=== PATIENT | male | born 1960 | race Caucasian/White ===

== ENCOUNTER 2018-06-01 06:39 | Observation (INO) | payer OTHER ==
[2018-05-29 09:49] LABS: BASOPHILS # (AUTO) 0.1 (0.0-0.1); BASOPHILS % 0.7 % (0.0-1.0); EOSINOPHILS # (AUTO) 0.3 (0.0-0.4); EOSINOPHILS % 3.4 % (0.0-6.0); HEMATOCRIT 44.6 % (38.2-49.6); HEMOGLOBIN 14.8 g/dL (14.0-18.0); LYMPHOCYTES # (AUTO) 1.7 (1.0-3.2); LYMPHOCYTES % 18.7 % (18.0-39.1); MEAN CORPUSCULAR HEMOGLOBIN 30.8 pg (28-32); MEAN CORPUSCULAR HGB CONC 33.2 g/dL (31-35); MEAN CORPUSCULAR VOLUME 92.9 fL (81-99); MONOCYTES # (AUTO) 0.8 (0.2-0.8); MONOCYTES % 8.9 % (4.4-11.3); NEUTROPHILS # (AUTO) 6.2 (2.1-6.9); NEUTROPHILS % 67.9 % (38.7-80.0); PLATELET COUNT 210 x10e3/uL (140-360); RED CELL DISTRIBUTION WIDTH 13.9 % (11.7-14.4)
[2018-05-29 10:17] LABS: ANION GAP 14.4 mmol/L (8-16); BLOOD UREA NITROGEN 15 mg/dL (7-26); BUN/CREATININE RATIO 18 (6-25); CALCIUM 9.2 mg/dL (8.4-10.2); CARBON DIOXIDE 31 mmol/L (22-29); CHLORIDE 99 mmol/L (98-107); CREATININE, SERUM 0.83 mg/dL (0.72-1.25); EST GLOMERULAR FILTRATION RATE > 60 ML/MIN (60-); GLUCOSE 116 mg/dL (74-118); POTASSIUM 4.4 mmol/L (3.5-5.1); SODIUM 140 mmol/L (136-145)
--- NOTE | 2018-05-29 10:49 | Diagnostic Imaging Report ---
PROCEDURE: Frontal and lateral views of the chest. COMPARISON: None. INDICATIONS: PRE-OPERATIVE CHEST X-RAY FOR BLADDER OBSTRUCTION FINDINGS: Lines/tubes: None. Lungs: The lungs are well inflated. Elevated left hemidiaphragm with left basilar opacification. Pleura: There is no significant pleural effusion or pneumothorax. Heart and mediastinum: The heart and the mediastinum are normal. Bones: No acute bony abnormality. IMPRESSION: Elevated left hemidiaphragm with adjacent left basilar mild opacification, likely compressive atelectasis. Underlying infiltrate/small effusion cannot be excluded in the appropriate clinical setting. Dictated by: Chano Stahl M.D. on 05/29/2018 at 10:53 Electronically approved by: Chano Stahl M.D. on 05/29/2018 at 10:53
[~2018-06-01] VITALS: Ht 182.9 cm; Wt 163.3 kg
[~2018-06-01 06:39] MED LIST: AMITRIPTYLINE H10 MG PO; AMLODIPINE BESY10 MG PO; ASPIR 8181 MG PO; ATORVASTATIN CA20 MG PO; CALCIUM ACETAT667 M1 PO; FINASTERIDE5 MG PO; FISH OIL 1,2001 EAC1 PO; FLAXSEED OIL1000 MG PO; FLOMAX0.4 MG PO; LISINOPRIL10 MG PO; MELOXICAM7.5 MG PO; MULTI-VITAMIN1 EACH PO; NORCO 7.5-3251 EACH PO
[2018-06-01] MEDS ORDERED: BELLADONNA/OPIUM 30 MG SUPP RC ONE (07:14)
[2018-06-01] MEDS ORDERED: IOPAMIDOL 300MG/ML 50ML INFUS..BTL IV ONE (07:15)
[2018-06-01] MEDS ORDERED: CEFTRIAXONE SOD 1 GM VIAL ONE (07:35)
[2018-06-01] MEDS ORDERED: DEXTROSE 5%/0.45% SOD CHL 1,000 ML IV ONE (11:15)
[2018-06-01] MEDS ORDERED: ACETAMINOPHEN/CODEINE 300MG - 30MG TAB PO PRN ×2 (11:15)
--- NOTE | 2018-06-01 11:43 | Diagnostic Imaging Report ---
PROCEDURE: A single AP view of the chest. COMPARISON: [facility], , CHEST 2 VIEWS, 05/29/2018, 9:58. INDICATIONS: HYPOXIA DURING SURGERY FINDINGS: See impression. IMPRESSION: 1. unchanged elevation of the left hemidiaphragm and associated atelectatic changes. 2. Stable enlargement of the cardiac silhouette. Central pulmonary venous congestion. 3. Right lung is grossly clear. No effusion or consolidation. Jad Pandey M.D. Dictated by: Jad Pandey M.D. on 06/01/2018 at 11:48 Electronically approved by: Jad Pandey M.D. on 06/01/2018 at 11:48
[2018-06-01 12:32] VITALS: BP 119/70
[2018-06-01 13:57] VITALS: BP 119/70
[2018-06-01] MEDS ORDERED: LIDOCAINE HCL 2% LOCAL INJ 5 ML SDV VIAL INJ ONE (14:18)
[2018-06-01] MEDS ORDERED: SUCCINYLCHOLINE 200 MG/10 ML SYR ONE (14:18)
[2018-06-01] MEDS ORDERED: PROPOFOL IV EMULSION 10 MG/ML 20 ML VIAL ONE (14:18)
[2018-06-01] MEDS ORDERED: GLYCOPYRROLATE INJ 1MG/ 5 ML SYR ONE (14:18)
[2018-06-01] MEDS ORDERED: ALBUTEROL SULFATE HFA 8GM INHALATION AEROSOL INH ONE (14:18)
[2018-06-01] MEDS ORDERED: NEOSTIGMINE 5 MG/5ML SYR ONE (14:18)
[2018-06-01] MEDS ORDERED: EPHEDRINE SULFATE INJ 50 MG/10 ML SYR ONE (14:18)
[2018-06-01] MEDS ORDERED: ROCURONIUM BROMIDE 10 MG/ML 5ML VIAL ONE (14:18)
[2018-06-01] MEDS ORDERED: SEVOFLURANE INHAL SOLN 250 ML PEN BTL ONE (14:18)
[2018-06-01 15:18] VITALS: BP 142/81
[2018-06-01] MEDS ORDERED: HYDROCODONE/APAP 7.5MG-325MG 1 EA TAB PO PRN (15:30)
[2018-06-01] MEDS ORDERED: MIDAZOLAM HCL 2 MG/2 ML VIAL ONE (18:04)
[2018-06-01] MEDS ORDERED: FENTANYL CITRATE/PF 100MCG/2 ML INJ ONE (18:04)
[2018-06-01 19:54] VITALS: BP 140/91
[2018-06-01 21:00] VITALS: BP 140/91
[2018-06-01] MEDS ORDERED: ATORVASTATIN 20 MG TAB PO SCH (21:00)
[2018-06-01] MEDS ORDERED: AMITRIPTYLINE HCL 10 MG TAB PO PRN (21:00)
[2018-06-02 00:01] VITALS: BP 141/77
[2018-06-02 03:46] VITALS: BP 127/75
[2018-06-02 07:47] VITALS: BP 118/76
[2018-06-02] MEDS ORDERED: FINASTERIDE 5 MG TAB PO SCH (09:00)
[2018-06-02] MEDS ORDERED: LISINOPRIL 10 MG TAB PO SCH (09:00)
[2018-06-02] MEDS ORDERED: FATTY ACIDS PO SCH (09:00)
[2018-06-02] MEDS ORDERED: [UNRECOGNIZED DRUG - OTHER] PO SCH (09:00)
[2018-06-02] MEDS ORDERED: CALCIUM ACETATE 667 MG GELCAP PO SCH (09:00)
[2018-06-02] MEDS ORDERED: FLAXSEED PO SCH (09:00)
[2018-06-02] MEDS ORDERED: OMEGA 3 POLYUNSAT FATTY ACIDS 1000 MG SOFTGEL PO SCH (09:00)
[2018-06-02] MEDS ORDERED: AMLODIPINE BESYLATE 10 MG TAB PO SCH (09:00)
[2018-06-02] MEDS ORDERED: FISH OIL PO SCH (09:00)
[2018-06-02] MEDS ORDERED: CALCIUM CARBONATE 500 MG CHEWABLE TABS PO SCH (09:00)
[2018-06-02] MEDS ORDERED: OMEGA PO SCH (09:00)
[2018-06-02] MEDS ORDERED: TAMSULOSIN HCL 0.4 MG CAP PO SCH (09:00)
[2018-06-02] MEDS ORDERED: MULTIVITAMINS/MINERALS TAB PO SCH (09:00)
[2018-06-02] MEDS ORDERED: MELOXICAM 7.5 MG TAB PO SCH (09:00)
[2018-06-02] MEDS ORDERED: LISINOPRIL 20 MG TAB PO SCH (09:00)
--- NOTE | 2018-06-28 16:50 | Operative Report ---
DATE OF PROCEDURE: June 01, 2018 PREOPERATIVE DIAGNOSIS: Bladder outlet obstruction. POSTOPERATIVE DIAGNOSIS: Bladder outlet obstruction. PROCEDURES PERFORMED: 1. Cystoscopy. 2. Transurethral resection of the prostate. ANESTHESIA: General anesthesia. ESTIMATED BLOOD LOSS: Minimal. INDICATIONS: Mr. Stevo Kwon is a 57-year-old gentleman with a long history of bladder outlet obstructive symptoms which have not responded adequately to maximum medical therapy. He now presents for definitive surgical management of this problem. PROCEDURE IN DETAIL: The patient was brought into the operating room and placed in supine position and after administration of general anesthesia was prepped and draped in the usual sterile fashion. He was put in the dorsal lithotomy position. Cystourethroscopy was performed using a 21-Vincentian cystoscope. The anterior and posterior urethrae were noted to be normal. The prostate revealed evidence of trilobar hyperplasia. The bladder was entered without difficulty. Upon entrance into the bladder, the ureteral orifices were in their normal anatomical position and produced clear efflux. There were grade 2 trabeculations noted throughout. There were no mucosal lesions identified. The bladder was left full, and the cystoscope and the sheath were removed. A 26-Vincentian resectoscope sheath was placed in a retrograde fashion, and the [employer] resectoscope was used to perform the procedure. Beginning at the 1 o'clock position and proceeding in a clockwise fashion down to the 6 o'clock position, all of the adenomatous tissues between the bladder neck and the veru were resected down to the level of the surgical capsule. Hemostasis was obtained using the electrocautery device. A similar procedure was performed on the contralateral side in a counterclockwise fashion beginning at the 11 o'clock position and again ending at the 6 o'clock position. The residual tissue noted on the roof and floor of the gland was then resected down as well. Hemostasis was obtained using the electrocautery device, and the [email or web address] evacuator was used to remove all chips. These were sent to pathology for microscopic analysis. Once adequate hemostasis was secured, the bladder was left full and the resectoscope and the sheath were removed. The patient was noted to have a brisk urinary flow with coude. A 24-Vincentian 3-way catheter was then placed in a retrograde fashion and the balloon inflated. The urinary efflux was noted to be blood-tinged. The patient was returned to supine position, and the anesthesia was reversed. He was transferred to a bed and taken to the postanesthesia care unit in good condition. Of note, the instrument count was correct at the conclusion of the case. Job#: [id number] EV
== END 2018-06-02 10:35 | disposition home or self-care (01) ==
LOC: OR 06:39 → PACU V 11:09 → IMCU 12:15
PROVIDERS: ADMIT Urology; ATTEND Urology
DX: N40.1 Benign prostatic hyperplasia with lower urinary tract symptoms (principal); N13.8 Other obstructive and reflux uropathy; I10 Essential (primary) hypertension; Z88.0 Allergy status to penicillin
CPT/HCPCS: 36415; 52630; 71045; 71046; 80048; 85025; 88305; 93005; G0378 ×2; J0696; J2001; J2250; J3490

== ENCOUNTER 2019-07-18 11:06 | Inpatient (IN) | payer OTHER ==
[~2019-07-18] VITALS: Ht 182.9 cm; Wt 159.7 kg
[2019-07-18] MEDS ORDERED: MORPHINE SULFATE 2 MG/ML SYR 1ML IV STA (11:57)
[2019-07-18] MEDS ORDERED: VANCOMYCIN 1GM/NS 250 ML 250 ML IV STA (11:57)
[2019-07-18] MEDS ORDERED: SODIUM CHLORIDE 0.9% 1000ML 1,000 ML IV STA (11:57)
[2019-07-18] MEDS ORDERED: PANTOPRAZOLE 40 MG 10ML VIAL IV STA (11:57)
[2019-07-18] MEDS ORDERED: ASPIRIN 81 MG CHEW TAB PO ONE (12:00)
[2019-07-18] MEDS ORDERED: SODIUM CHLORIDE 0.9% 1000ML 1,000 ML IV SCH (12:09)
[2019-07-18] MEDS ORDERED: ONDANSETRON HCL INJ 2MG/ML 2ML 2 MG/ML VIAL IV PRN (12:15)
[2019-07-18] MEDS ORDERED: CEFEPIME 2 GM/NS 0.9% 100 ML 100 ML IV ONE (12:20)
[2019-07-18] MEDS ORDERED: MORPHINE SULFATE 2 MG/ML SYR 1ML IV PRN (12:30)
[2019-07-18 12:56] LABS: BASOPHILS # (AUTO) 0.1 (0.0-0.1); BASOPHILS % 0.9 % (0.0-1.0); EOSINOPHILS # (AUTO) 0.4 (0.0-0.4); EOSINOPHILS % 2.9 % (0.0-6.0); HEMATOCRIT 43.6 % (38.2-49.6); HEMOGLOBIN 14.1 g/dL (14.0-18.0); LYMPHOCYTES # (AUTO) 1.9 (1.0-3.2); LYMPHOCYTES % 12.6 % (18.0-39.1); MEAN CORPUSCULAR HEMOGLOBIN 30.5 pg (28-32); MEAN CORPUSCULAR HGB CONC 32.3 g/dL (31-35); MEAN CORPUSCULAR VOLUME 94.2 fL (81-99); MONOCYTES # (AUTO) 1.6 (0.2-0.8); MONOCYTES % 10.3 % (4.4-11.3); NEUTROPHILS # (AUTO) 10.6 (2.1-6.9); NEUTROPHILS % 70.6 % (38.7-80.0); PLATELET COUNT 348 x10e3/uL (140-360); RED BLOOD COUNT 4.63 x10e6/uL (4.3-5.7); RED CELL DISTRIBUTION WIDTH 13.8 % (11.7-14.4)
--- NOTE | 2019-07-18 12:58 | Diagnostic Imaging Report ---
EXAM: CHEST SINGLE (PORTABLE) DATE: 07/18/2019 11:57 AM INDICATION: Shortness of breath COMPARISON: 06/01/2018 FINDINGS: The trachea is midline. There is stable blunting of the left costophrenic angle and left lower lung zone opacities which may reflect atelectasis and/or pleural fluid. There is no evidence for new large focal consolidation or pneumothorax. The cardiac mediastinal silhouette is stable in appearance. No acute osseous abnormalities identified. IMPRESSION: Stable left lower lung zone opacities which may reflect atelectasis and/or small volume of pleural fluid. An underlying airspace process cannot be entirely excluded. Signed by: Dr. Anthony Pool MD on 07/18/2019 12:55 PM
[2019-07-18 13:04] LABS: BILIRUBIN,URINE NEGATIVE (NEGATIVE); CLARITY,URINE CLEAR (CLEAR); COLOR,URINE YELLOW (YELLOW); KETONES,URINE NEGATIVE (NEGATIVE); LEUKOCYTE ESTERASE ,URINE NEGATIVE (NEGATIVE); NITRITE,URINE NEGATIVE (NEGATIVE); PROTEIN,URINE DIPSTICK NEGATIVE (NEGATIVE); URINE UROBILINOGEN 1 mg/dL (0.2 - 1)
[2019-07-18 13:07] LABS: INR 1.1; PROTHROMBIN TIME 14.7 seconds (11.9-14.5)
[2019-07-18 13:08] LABS: PARTIAL THROMBOPLASTIN TIME 28.2 seconds (23.8-35.5)
[2019-07-18 13:15] LABS: ALANINE AMINOTRANSFERASE 33 IU/L (0-55); ALBUMIN 2.7 g/dL (3.5-5.0); ALBUMIN/GLOBULIN RATIO 0.6 (0.8-2.0); ALKALINE PHOSPHATASE 132 IU/L (40-150); ANION GAP 11.1 mmol/L (8-16); BLOOD UREA NITROGEN 11 mg/dL (7-26); BUN/CREATININE RATIO 14 (6-25); CALCIUM 9.8 mg/dL (8.4-10.2); CARBON DIOXIDE 34 mmol/L (22-29); CHLORIDE 93 mmol/L (98-107); CREATINE KINASE 405 IU/L (30-200); CREATININE, SERUM 0.81 mg/dL (0.72-1.25); EST GLOMERULAR FILTRATION RATE > 60 ML/MIN (60-); GLUCOSE 110 mg/dL (74-118); LIPASE 35 U/L (8-78); MAGNESIUM 2.4 MG/DL (1.3-2.1); POTASSIUM 4.1 mmol/L (3.5-5.1); SODIUM 134 mmol/L (136-145)
[2019-07-18] MEDS ORDERED: VANCOMYCIN 1GM/NS 250 ML 250 ML IV ONE (13:15)
[2019-07-18 13:30] LABS: B-TYPE NATRIURETIC PEPTIDE2 19.3 pg/mL (0-100)
[2019-07-18 13:37] LABS: BACTERIA,URINE FEW /HPF; RENAL EPITHELIAL CELLS,URINE RARE; THYROID STIMULATING HORMONE 0.735 uIU/mL (0.350-4.940)
[2019-07-18 13:59] LABS: EPITHELIAL CELLS,URINE RARE /LPF
[2019-07-18] MEDS ORDERED: FUROSEMIDE INJ 10 MG/ML 4 ML VIAL IV SCH (15:45)
[2019-07-18] MEDS ORDERED: HYDROCODONE/APAP 5MG-325MG TAB PO PRN (16:00)
[2019-07-18 16:20] VITALS: BP 133/80
[2019-07-18 16:25] VITALS: BP 133/80
[2019-07-18] MEDS: ENOXAPARIN SOD INJ 40 MG/0.4 ML SYR SC SCH (17:41)
[2019-07-18] MEDS: FAMOTIDINE 20 MG/2 ML VIAL IV SCH (17:41)
--- NOTE | 2019-07-18 18:50 | NUR ---
Spoke with Dr. Torres at this time. Patient is requesting that we place a Arndt catheter. Educated patient regarding high risk of infection. Dr. Torres denied patient's request but stated, "If the patient continues to ask during the night, it is ok to put one in. Don't call me to ask." Verbalized understanding of orders.
[2019-07-18 20:00] VITALS: BP 142/79
[2019-07-18 21:00] VITALS: BP 142/79
[2019-07-18 21:33] LABS: CREATINE KINASE 412 IU/L (30-200)
--- NOTE | 2019-07-18 22:51 | History and Physical ---
CHIEF COMPLAINT: Right lower extremity redness, shortness of breath. HISTORY OF PRESENT ILLNESS: This is a 58-year-old male, morbidly obese, and which he [place] the [place] of [place], reports a history of hypertension, hyperlipidemia, BPH, presents to the ED with complaints of right lower extremity cellulitis and shortness of breath ongoing for the last several weeks. In relation to his right lower extremity cellulitis, he reports that it began worse since last with increased swelling in the right lower extremity and pain. Denies any cold sensation to the right lower extremity. He reports it started initially on the foot in terms of the redness and progressed all the way up towards the knee. He denies any fever at home. No discharge from the right lower extremity. In relation to the shortness of breath, he reports it has been ongoing for several weeks, but has progressively gotten worse over the last one week. He denies any chest pain or any palpitations. No nausea, no vomiting. He does not know if he has obstructive sleep apnea, but the patient is morbidly obese. The patient is seen and evaluated at bedside on the medical floor. He is currently doing well. He was stable. His vital signs were stable when I evaluated him. REVIEW OF SYSTEMS: Pertinent positives: Shortness of breath, right lower extremity cellulitis, dyspnea on exertion, orthopnea. Pertinent negatives: Denies any chest pain, palpitation, nausea, vomiting, diarrhea, dysuria, hematuria, frequency, urgency, lightheadedness, dizziness, abdominal pain, headache, cough, congestion, fever, or any other complaints. The rest of 14-point review of systems have been reviewed with the patient and are negative. ALLERGIES: TO PENICILLIN. MEDICATIONS: Home medications are still currently not in the system from me to reconcile. PAST MEDICAL HISTORY: He does have hypertension. He is morbidly obese, BPH, chronic pain syndrome, presumed to have a history of depression. PAST SURGICAL HISTORY: Reports none. FAMILY HISTORY: Hypertension and diabetes. SOCIAL HISTORY: No drugs. No alcohol. Does not smoke. Good social support. PHYSICAL EXAMINATION: VITAL SIGNS: Temperature is 98.6, pulse 90, respiratory rate is 20, blood pressure 134/91, pulse ox 96% on room air. GENERAL: Not in acute distress. Alert and oriented x3. Cooperative on examination. HEENT: Head normocephalic, atraumatic. Eyes; pupils are equal, round, and reactive to light bilaterally. Extraocular movements intact bilaterally. Throat; no evidence of erythema or exudates in the posterior pharynx. Has poor dentition. NECK: Supple. Good range of motion. PULMONARY: Clear to auscultation bilaterally. No rales, no rhonchi. He did have some wheezing on exam and decreased breath sounds appreciated. No crackles are appreciated. CARDIOVASCULAR: Positive S1 and S2. No murmurs, rubs, or gallops appreciated. ABDOMEN: Soft, nondistended, and nontender to palpation. Bowel sounds present. MUSCULOSKELETAL: Strength is 5/5 throughout. No evidence of any muscle deficits on examination. No weakness appreciated. NEUROLOGIC: Cranial nerves 2 through 12 are grossly intact. No evidence of any neurological deficits on exam. SKIN: Right lower extremity redness with erythema to the palpation with swelling. Left lower extremity was good. PSYCHIATRIC: Normal affect and mood. EXTREMITIES: No edema. Good range of motion throughout. LABORATORY FINDINGS: Show white count is 15, hemoglobin 14, hematocrit is 44, platelets of 348. Coagulation PT 14, INR 1.1, PTT 28. Chemistry, sodium 134, potassium 4.1, chloride 93, bicarbonate 34, anion gap of 11. BUN is 11, creatinine is 0.81. Lactic acid is 8.8, which is normal. Glucose is 110. LFTs within normal range. CK was 405. Troponins are negative. BNP 19, albumin 2.7, lipase is 35. TSH is 0.735. Urinalysis, found to be negative. MICROBIOLOGY: Blood and urine cultures are pending. IMAGING STUDIES: Chest x-ray, stable left lower lung field opacity, which may reflect atelectasis or small volume of pleural fluid. Venous Doppler pending. IMPRESSION: 1. Right lower extremity cellulitis with swelling. 2. Shortness of breath, presumed to be from obesity hypoventilation syndrome versus some other form of etiology. 3. Hypertension. 4. Rhabdomyolysis, very mild. 5. Leukocytosis, secondary to cellulitis. 6. Benign prostatic hyperplasia. PLAN: At this time, continue with IV antibiotics. ID consulted. Blood and urine cultures are collected. In relation to his shortness of breath, I did consult with Pulmonary. May need CT of the chest for further evaluation and management. We will await Pulmonary recommendations. Put him on DuoNeb and Lasix. Likely, the patient has underlying obstructive sleep apnea plus may also have obesity hypoventilation syndrome as well. We did talk about diet and exercise regimen for his obesity. In relation to his high blood pressure, we are going to resume same home medications. He is on a heart healthy diet. Lovenox for DVT prophylaxis. I did order a 2D echo to assess for heart function. May need Cardiology consultation as well. There is also a venous Doppler of the lower extremities to rule out any DVT. Get repeat labs in the morning. Otherwise, we will continue with same plan of care and monitor very closely. MD JUNIOR Borja/[place] /[id number]
--- NOTE | 2019-07-18 23:11 | Consultation ---
DATE OF CONSULTATION: REASON FOR CONSULTATION: Cellulitis of the right leg. HISTORY OF PRESENT ILLNESS: This patient, who is a very pleasant 58-year-old white male with history of obesity, history of bilateral lower extremities edema, hypertension, hyperlipidemia, benign prostatic hypertrophy with prostate surgery before, comes in with redness and swelling of his right leg for the last 5 days, fever, chills. No specific injury. There is some pain in the leg. This is the first time he got leg infection. The patient started to have the foot went up all the way to big size, so he came to the emergency room. PAST MEDICAL HISTORY: Obesity, hypertension, hyperlipidemia, benign prostatic hypertrophy. PAST SURGICAL HISTORY: Prostate surgery. ALLERGIES: NKA. SOCIAL HISTORY: He denies smoking, drug abuse, or alcohol abuse. FAMILY HISTORY: Hypertension. REVIEW OF SYSTEMS: HEENT: Negative. PULMONARY: Negative. CARDIAC: Negative. : Negative. GI: Negative. SKIN: There are no other rashes. All other symptoms within normal limit. LABORATORY DATA: Reviewed. The patient was seen in the emergency room. Cultures still pending. His white count is 15.01, hemoglobin of 14. Sodium 134, potassium 4.0, creatinine 0.8. MEDICATIONS: The patient is currently on Zofran, cefepime, and vancomycin. PHYSICAL EXAMINATION: GENERAL: He is currently alert, oriented, does not seem to be in acute distress. VITAL SIGNS: Stable, currently afebrile. HEENT: He is not icteric. NECK: Supple. CHEST: Clear. ABDOMEN: Soft. Bowel sounds present. EXTREMITIES: On the leg, there is erythema and there is edema. The erythema and edema involving the whole leg as mentioned above from the toes all the way to mid thigh. IMPRESSION: Cellulitis of the leg, obesity, probably underlying venous stasis. I would recommend to continue vancomycin and continue cefepime. We will check CBC. We will check Chem panel. He would benefit from weight loss. He would benefit from diet and exercise. Also, elastic stocking and compression stocking. Discussed with the patient. We will follow with you. MD DANIA Manning/[place] /[id number]
[2019-07-19] VITALS (26 sets, daily range): BP systolic 93–149; BP diastolic 57–95
[2019-07-19] MEDS ORDERED: VANCOMYCIN 1GM/NS 250 ML 250 ML IV STA (00:19)
--- NOTE | 2019-07-19 00:35 | NUR ---
NOTIFIED DR KATZ PATIENT'S MENTAL STATUS CHANGE, LOW O2 SAT AND ELEVATED HEART RATE. NEW ORDER FOR BIPAP AND TRANSFER TO ICU
--- NOTE | 2019-07-19 01:08 | NUR ---
Received to 190 from MS 2. Placed on EKG, pulse ox and NBP for monitoring. Placed on Bipap.
[2019-07-19] MEDS: FUROSEMIDE INJ 10 MG/ML 4 ML VIAL IV SCH ×3 (01:10→17:02)
[2019-07-19] MEDS: ACETAMINOPHEN 325 MG TAB PO PRN ×2 (01:10→20:06)
--- NOTE | 2019-07-19 01:50 | NUR ---
Voiding scant amt. Order for wilhelm. Inserted 16 FR wilhelm without difficulty. Clear yellow urine returned.
[2019-07-19] MEDS ORDERED: VANCOMYCIN 1GM/NS 250 ML 250 ML IV SCH (04:00)
[2019-07-19] MEDS ORDERED: SODIUM CHLORIDE 0.9% 250ML 250 ML ONE ×2 (04:43→20:57)
[2019-07-19] MEDS: CEFEPIME 1GM/NS 0.9% 50 ML 50 ML IV SCH ×2 (04:47→17:00)
[2019-07-19 05:24] LABS: BASOPHILS # (AUTO) 0.2 (0.0-0.1); EOSINOPHILS # (AUTO) 0.1 (0.0-0.4); EOSINOPHILS % 0.7 % (0.0-6.0); HEMATOCRIT 41.5 % (38.2-49.6); LYMPHOCYTES # (AUTO) 1.7 (1.0-3.2); LYMPHOCYTES % 11.1 % (18.0-39.1); MEAN CORPUSCULAR HEMOGLOBIN 30.3 pg (28-32); MEAN CORPUSCULAR HGB CONC 31.3 g/dL (31-35); MEAN CORPUSCULAR VOLUME 96.7 fL (81-99); MONOCYTES # (AUTO) 1.6 (0.2-0.8); MONOCYTES % 10.1 % (4.4-11.3); NEUTROPHILS # (AUTO) 11.4 (2.1-6.9); NEUTROPHILS % 72.8 % (38.7-80.0); PLATELET COUNT 386 x10e3/uL (140-360); RED BLOOD COUNT 4.29 x10e6/uL (4.3-5.7); RED CELL DISTRIBUTION WIDTH 13.9 % (11.7-14.4)
[2019-07-19 05:42] LABS: ALBUMIN 2.4 g/dL (3.5-5.0); BILIRUBIN,DIRECT 0.2 mg/dL (0.0-0.5)
--- NOTE | 2019-07-19 05:59 | Consultation ---
DATE OF CONSULTATION: 07/18/2019 Pulmonary/Medicine Consult REASON FOR REFERRAL: Hypoxemia. HISTORY OF PRESENT ILLNESS: Mr. Kwon is a pleasant 58-year-old gentleman with hypoxemia. The patient was admitted to [facility] on July 18, 2019. The patient was experiencing right lower extremity pain. Those were redness associated. There has been increasing shortness of breath as well. The patient came to emergency room. The patient had lower extremity ultrasound that on preliminary report suggests no evidence of DVT. He was admitted and was treated for acute cellulitis. His heart rate is progressively higher and about 140 beats per minute. The patient also with hypoxemia with saturation barely 88% on nasal cannula oxygen. The patient also is mildly confused. I am consulted. PAST MEDICAL HISTORY: Hypertension, hyperlipidemia, history of prostate surgery, history of mild asthma, and history of allergies. There is a GERD. Obesity. Never been tested for sleep apnea he says. MEDICATIONS: Medication list reviewed per the chart record. This list includes tamsulosin, finasteride, atorvastatin, lisinopril, amlodipine, meloxicam, [place], amitriptyline, aspirin, multivitamin, vitamins, and calcium. ALLERGIES: PENICILLIN. SOCIAL HISTORY: Denies smoking. No drinking. No drugs. 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 FAMILY HISTORY: Noncontributory. REVIEW OF SYSTEMS: Cannot get reliably as he is altered. OBJECTIVE: VITAL SIGNS: The patient with temperature maximum 99.5. Heart rate in the mostly 80s to 102 recently until reports, now 140s. 88% oxygen saturation on room air and difficult to increase on nasal cannula oxygen. HEENT: Normocephalic and atraumatic. NECK: Supple. Throat midline. LUNGS: Bilateral air entry, decreased air entry, decreased exam. CARDIOVASCULAR: S1 and S2. No murmurs, rubs, or gallops. ABDOMEN: Soft, obese, nontender. EXTREMITIES: No clubbing. No cyanosis. There is 2+ edema of both legs, it is definitely warm and redness just above the knee. INTEGUMENT: No flo cuts. No rash. LABORATORY DATA: Labs reviewed per the chart record. White count 15, hematocrit 44, and platelets 248. Sodium 134, potassium 4.1, creatinine 0.81, and BUN 11. Magnesium 2.2. Creatine kinase 412. BNP 19. Albumin 2.7. INR 1.10. Chest radiography was clear. IMPRESSION AND PLAN: 1. Severe right lower extremity cellulitis. 2. Encephalopathy, toxic metabolic encephalopathy. Possible CO2 narcosis. 3. Tachycardia, systemic inflammatory response syndrome, severe sepsis. 4. Hypoxemia, multifactorial. Atelectasis, possible early secondary lung injury, possible other etiologies. 5. Obesity, possible obstructive sleep apnea. 6. History of hypertension. 7. Hyperlipidemia. 8. History of prostate surgery. 9. Left-sided atelectasis versus other. Aggressive antibiotics per ID. Incentive spirometry, lung expansion. Mobilize him as safe noting he is confused in a fall situation. BiPAP can be tried and if it does not work, we will consider blood gas analysis to assess his carbon dioxide levels. The patient will have EKG assessment if he needs fluid resuscitation . We will follow along closely. Greater than 30 minutes in direct care and reassessment on this day with multiple evaluations. Thank you very much, Dr. Torres, for this consult. MD SONAM Goodson/MODL /[id number]
[2019-07-19 06:01] LABS: CREATINE KINASE MB 0.8 ng/mL (0-5.0)
[2019-07-19 06:44] LABS: BLOOD UREA NITROGEN 15 mg/dL (7-26); BUN/CREATININE RATIO 14 (6-25); CALCIUM 8.9 mg/dL (8.4-10.2); CARBON DIOXIDE 32 mmol/L (22-29); CHLORIDE 96 mmol/L (98-107); CREATININE, SERUM 1.04 mg/dL (0.72-1.25); EST GLOMERULAR FILTRATION RATE > 60 ML/MIN (60-); GLUCOSE 141 mg/dL (74-118); SODIUM 137 mmol/L (136-145)
--- NOTE | 2019-07-19 06:55 | NUR ---
Recheck BS 95.
[2019-07-19 07:07] LABS: MAGNESIUM 2.3 MG/DL (1.3-2.1)
--- NOTE | 2019-07-19 07:24 | NUR ---
More alert this am. Answers all neuro questions appropriately.
[2019-07-19 08:39] LABS: BAND NEUTROPHILS % (MANUAL) 6 %; LYMPHOCYTES % (MANUAL) 18 % (19-48); MONOCYTES % (MANUAL) 13 % (3.4-9.0); NEUTROPHILS % (MANUAL) 60 % (40-74); POIKILOCYTOSIS SLIGHT; POLYCHROMASIA FEW; RBC MORPHOLOGY COMMENT ABNORMAL
[2019-07-19 08:40] LABS: ANISOCYTOSIS SLIGHT; PLATELET ESTIMATE SLIGHTLY INCREASED; PLATELET MORPHOLOGY COMMENT NORMAL
[2019-07-19] MEDS: FAMOTIDINE 20 MG/2 ML VIAL IV SCH ×2 (09:04→17:02)
[2019-07-19] MEDS: VANCOMYCIN 1GM/NS 250 ML 250 ML IV SCH ×2 (09:04→21:00)
[2019-07-19 09:46] LABS: ABG PH 7.26 (7.31-7.41)
[2019-07-19 09:47] LABS: ABG HCO3 40 mmol/L (23-28); ABG PCO2 89 mmHg (41-51); ABG PO2 103 mmHg (80-105)
--- NOTE | 2019-07-19 13:41 | NUR ---
PULMONARY MEDICINE Date of encounter: 07/19/2019 SUBJECTIVE: More responsive today bipap now 18/8, fio2 45% MV 6.7 L/min, rr 19 EKG now 90-102, sinus abg shows persistent acidosis REVIEW OF SYSTEMS: no headaches, no rash OBJECTIVE: VITAL SIGNS: Reviewed per record HEENT: Normocephalic and atraumatic. NECK: Supple. Throat midline. LUNGS: Bilateral air entry, decreased air entry CARDIOVASCULAR: S1 and S2. No murmurs, rubs, or gallops. ABDOMEN: Soft, obese, nontender. EXTREMITIES: No clubbing. No cyanosis. 3+ edema to right leg, warm and red to above the knee. INTEGUMENT: No flo cuts. No rash. LABORATORY DATA: k 5.0, cr 1.0. hco3 32. 16 wbc, hct 41, plt 386 IMPRESSION AND PLAN: 1. Severe right lower extremity cellulitis. 2. Encephalopathy, toxic/ metabolic /CO2 narcosis. 3. Tachycardia, severe sepsis. 4. Hypoxemia, multifactorial. Atelectasis, possible early secondary lung injury, possible other etiologies. Possible hypoventilation. 5. Obesity, possible obstructive sleep apnea. 6. History of hypertension. 7. Hyperlipidemia. 8. History of prostate surgery. 9. Left-sided atelectasis vs other Aggressive antibiotics per ID. BIPAP rescue continue, wean as he improves PRN blood gas analysis diuretics as tolerated dvt ppx Thank you very much, Dr. Torres, for this consult.
--- NOTE | 2019-07-19 16:30 | NUR ---
WOUND CARE CONSULTATION: THIS IS A 58 YEAR OLD MALE ADMITTED TO [facility] FOR CELLUTITIS, FEVER, AND LYMPHEDEMA. HEAD TO TOE SKIN ASSESSMENT PERFORMED. PATIENT HAS REDNESS, WARMTH, AND 3+ PITTING EDEMA NOTED TO THE RIGHT LOWER LEG; SKIN INTACT; UNABLE TO PALPATE PULSES DUE TO EDEMA. LABS: WBC15.61 ALB2.4 BLOOD CULTURE - PENDING URINE CULTURE - PENDING VENOUS DUPLEX OF BLE = PENDING MEDICATIONS: VANCOMYCIN CEFEPIME RECOMMENDATION: -CONTINUE ALTERNATING PRESSURE RELIEF MATTRESS. -APPLY BILATERAL HEEL PROTECTORS WITH PILLOW SUSPENSION. -TURN EVERY 2 HOURS AND PRN. -NURSING TO MONITOR RIGHT LOWER EXTREMITY REDNESS AND CELLULITIS; RECONSULT WOUND CARE IF ANY FURTHER CONCERNS/WORSENING. THANK YOU FOR THIS WOUND CARE CONSULT. Addendum: 07/19/19 at 1638 by Domi Pradhan RN Amended: Links added.
[2019-07-19] MEDS: ENOXAPARIN SOD INJ 40 MG/0.4 ML SYR SC SCH (17:02)
--- NOTE | 2019-07-19 17:42 | Progress Note ---
DATE: 07/19/2019 Medicine Progress Note. SUBJECTIVE: The patient is currently in the ICU. Apparently, last night, he was very confused, had an elevated pCO2, was sent to the ICU by the public relations supervisor. He is currently on BiPAP. His last pCO2 was found to be 88. He is doing well. Occasionally, he will get confused according to the nurse. PHYSICAL EXAMINATION: VITAL SIGNS: Temperature 98, pulse 70, respiratory rate is 18, blood pressure 137/92, pulse ox, he is on 99%. He is on BiPAP, FiO2 of 45%. GENERAL: Not in acute distress. Alert and oriented x3. Cooperative on examination. HEENT: Head normocephalic, atraumatic. Eyes; pupils are equal, round, and reactive to light bilaterally. Extraocular movements intact bilaterally. Throat; no evidence of erythema or exudates in the posterior pharynx. Has poor dentition. PULMONARY: Clear to auscultation bilaterally. No wheezing, no rales, no rhonchi. No crackles are appreciated. CARDIOVASCULAR: Positive S1 and S2. No murmurs, rubs, or gallops appreciated. ABDOMEN: Soft, nondistended, and nontender to palpation. Bowel sounds present. MUSCULOSKELETAL: Strength is 5/5 throughout. No evidence of any muscle deficits on examination. No weakness appreciated. NEUROLOGIC: Cranial nerves II through XII are grossly intact. No evidence of any neurological deficits on exam. SKIN: Intact, warm to touch. Good cap refill. PSYCHIATRIC: Normal affect and mood. EXTREMITIES: He has 1 to 2+ pedal edema bilateral lower extremities. LABORATORY DATA: White count 15.6, hemoglobin 13, hematocrit is 41, and platelets of 386. His ABG, pH 7.26, pCO2 of 89, PO2 of 103, bicarbonate 40. Coagulation, PT 14, INR 1.1, PTT is 28. Chemistries: Sodium 137, potassium 5, chloride 96, bicarbonate 32, anion gap of 14, BUN is 15, creatinine is 1, glucose 141, calcium 8.9, magnesium was 2.3. Phosphorus was 6. LFTs within normal range. BNP 22. Lactic acid 6.2, but normal and calcium 8.9. MICROBIOLOGY: Blood cultures, urine cultures, no growth to date. IMAGING STUDIES: Lower extremity venous Doppler preliminary shows no evidence of DVT. A 2D echo shows an EF of 55%. Preliminary read chest x-ray, this is from yesterday stable left lower lung zone opacities, likely to be atelectasis. Also, small volume of pleural fluid seen. IMPRESSION: 1. Right lower extremity cellulitis with underlying sweating. 2. Acute respiratory distress, currently on the BiPAP. 3. Hypertension. 4. Rhabdomyolysis. 5. Leukocytosis secondary to underlying cellulitis. 6. Sepsis secondary to underlying cellulitis with leukocytosis. 7. Benign prostatic hyperplasia. PLAN: At this time, blood and urine cultures were found to be negative. His venous Doppler preliminary shows no evidence of DVT. He is on IV antibiotics and monitor cultures closely. ID is following. In relation to his respiratory status, he is current on the BiPAP. His pCO2 was 89. Pulmonary transferred the patient to ICU for close observation and monitoring. He still on the BiPAP as we speak. A 2D echo is pending, but preliminary consistent with an EF of 55%. We will continue with IV diuretics and DuoNeb. Monitor his blood pressure closely. Continue with same antihypertensive medications. He is on Lovenox for DVT prophylaxis. Consultants on the case are ID and Pulmonary. We will continue same plan of care and monitor very closely. Discussed case with consultants. MD JUNIOR Borja/[place] /[id number]
--- NOTE | 2019-07-19 19:00 | NUR ---
Report received. Assumed care. Assessment done. See interventions.
--- NOTE | 2019-07-19 20:06 | NUR ---
Medicated for c/o headache.
--- NOTE | 2019-07-19 22:15 | NUR ---
Placed on Bipap for the night per request.
[2019-07-20] VITALS (13 sets, daily range): BP systolic 4–139; BP diastolic 71–124
[2019-07-20] MEDS: FUROSEMIDE INJ 10 MG/ML 4 ML VIAL IV SCH ×4 (00:34→20:12)
[2019-07-20] MEDS: CEFEPIME 1GM/NS 0.9% 50 ML 50 ML IV SCH ×2 (04:00→16:00)
[2019-07-20 05:00] LABS: BASOPHILS # (AUTO) 0.1 (0.0-0.1); BASOPHILS % 0.7 % (0.0-1.0); EOSINOPHILS # (AUTO) 0.3 (0.0-0.4); EOSINOPHILS % 2.7 % (0.0-6.0); HEMATOCRIT 41.7 % (38.2-49.6); HEMOGLOBIN 13.1 g/dL (14.0-18.0); LYMPHOCYTES # (AUTO) 1.7 (1.0-3.2); LYMPHOCYTES % 13.3 % (18.0-39.1); MEAN CORPUSCULAR HEMOGLOBIN 30.1 pg (28-32); MEAN CORPUSCULAR HGB CONC 31.4 g/dL (31-35); MEAN CORPUSCULAR VOLUME 95.9 fL (81-99); MONOCYTES # (AUTO) 1.2 (0.2-0.8); MONOCYTES % 9.7 % (4.4-11.3); NEUTROPHILS # (AUTO) 8.9 (2.1-6.9); NEUTROPHILS % 70.7 % (38.7-80.0); PLATELET COUNT 346 x10e3/uL (140-360); RED BLOOD COUNT 4.35 x10e6/uL (4.3-5.7); RED CELL DISTRIBUTION WIDTH 13.5 % (11.7-14.4)
[2019-07-20 05:23] LABS: ALANINE AMINOTRANSFERASE 26 IU/L (0-55); ALBUMIN 2.3 g/dL (3.5-5.0); ALBUMIN/GLOBULIN RATIO 0.5 (0.8-2.0); ALKALINE PHOSPHATASE 98 IU/L (40-150); BLOOD UREA NITROGEN 14 mg/dL (7-26); BUN/CREATININE RATIO 16 (6-25); CALCIUM 9.2 mg/dL (8.4-10.2); CHLORIDE 89 mmol/L (98-107); CREATININE, SERUM 0.87 mg/dL (0.72-1.25); EST GLOMERULAR FILTRATION RATE > 60 ML/MIN (60-); GLUCOSE 113 mg/dL (74-118); MAGNESIUM 2.2 MG/DL (1.3-2.1); SODIUM 137 mmol/L (136-145)
[2019-07-20 05:27] LABS: CARBON DIOXIDE 42 mmol/L (22-29)
[2019-07-20 05:47] LABS: CHOL/HDL RATIO 3.1 (3.9-4.7)
[2019-07-20 06:06] LABS: THYROID STIMULATING HORMONE 0.599 uIU/mL (0.350-4.940)
--- NOTE | 2019-07-20 06:21 | Diagnostic Imaging Report ---
EXAMINATION: CHEST SINGLE (PORTABLE) COMPARISON: 07/18/2019 INDICATION: ^hypoxemia ^[id number] ^[id number] DISCUSSION: Frontal view of the chest obtained at 0535 hours. HEART AND MEDIASTINUM: The heart is enlarged LINES: None. LUNGS: Left basilar airspace opacity is similar. Stable eventration of the left diaphragm. Pulmonary vascular markings are prominent. No new findings in the right lung. PLEURA: No large effusions. No pneumothorax. BONES AND SOFT TISSUES: No focal osseous lesion. The soft tissues are normal. IMPRESSION: Cardiomegaly and pulmonary vascular congestion. Stable left basilar airspace disease, either atelectasis or infiltrate. Signed by: Dr. Aye Bangura MD on 07/20/2019 6:18 AM
[2019-07-20] MEDS: FAMOTIDINE 20 MG/2 ML VIAL IV SCH (09:47)
[2019-07-20 10:43] LABS: ANISOCYTOSIS SLIGHT; BAND NEUTROPHILS % (MANUAL) 3 %; EOSINOPHILS % (MANUAL) 1 % (0-7); LYMPHOCYTES % (MANUAL) 23 % (19-48); MONOCYTES % (MANUAL) 7 % (3.4-9.0); NEUTROPHILS % (MANUAL) 65 % (40-74); PLATELET ESTIMATE ADEQUATE; PLATELET MORPHOLOGY COMMENT NORMAL; POIKILOCYTOSIS SLIGHT; RBC MORPHOLOGY COMMENT NORMAL
[2019-07-20] MEDS: VANCOMYCIN 1GM/NS 250 ML 250 ML IV SCH ×2 (11:00→21:50)
--- NOTE | 2019-07-20 13:12 | NUR ---
PULMONARY MEDICINE Date of encounter: 07/20/2019 SUBJECTIVE: More responsive today AO x 3 now at night, bipap now 18/8, fio2 45% 4L /min oxygen by NC now right leg still hot but mildly better REVIEW OF SYSTEMS: no headaches, no rash OBJECTIVE: VITAL SIGNS: Reviewed per record HEENT: Normocephalic and atraumatic. NECK: Supple. Throat midline. LUNGS: Bilateral air entry, decreased air entry CARDIOVASCULAR: S1 and S2. No murmurs, rubs, or gallops. ABDOMEN: Soft, obese, nontender. EXTREMITIES: No clubbing. No cyanosis. 3+ edema to right leg, warm and red to above the knee. INTEGUMENT: No flo cuts. No rash. LABORATORY DATA: k 4.0, cr .9. hco3 42. 13 wbc, hct 42, plt 346 IMPRESSION AND PLAN: 1. Severe right lower extremity cellulitis. 2. Encephalopathy, toxic/ metabolic /CO2 narcosis. 3. Tachycardia, severe sepsis. 4. Hypoxemia, multifactorial. Atelectasis, possible early secondary lung injury, possible other etiologies. Possible hypoventilation. 5. Obesity, possible obstructive sleep apnea. 6. History of hypertension. 7. Hyperlipidemia. 8. History of prostate surgery. 9. Left-sided atelectasis vs other Aggressive antibiotics per ID. BIPAP for IVIS PRN blood gas analysis diuretics as tolerated dvt ppx Thank you very much, Dr. Torres, for this consult.
[2019-07-20] MEDS ORDERED: ACETAZOLAMIDE SODIUM 500 MG/VIAL IV ONE ×2 (13:15→21:15)
[2019-07-20] MEDS ORDERED: POTASSIUM CHLORIDE 20 MEQ TAB CR PO ONE (14:00)
[2019-07-20] MEDS ORDERED: FUROSEMIDE INJ 10 MG/ML 4 ML VIAL IV SCH (17:00)
[2019-07-20] MEDS ORDERED: ACETAZOLAMIDE SODIUM 500 MG/VIAL IV SCH (17:00)
[2019-07-20] MEDS: ENOXAPARIN SOD INJ 40 MG/0.4 ML SYR SC SCH (17:14)
--- NOTE | 2019-07-20 17:28 | Progress Note ---
DATE: 07/20/2019 Medicine Progress Note SUBJECTIVE: The patient is doing well today with no other complaints. He is actually breathing much better and his swelling has improved tremendously. Denies any chest pain or any shortness of breath. PHYSICAL EXAMINATION: VITAL SIGNS: Temperature is 98.3, pulse 83, respiratory rate 14, blood pressure is 138/89. He is on 3 to 4 L of nasal cannula , 94% saturation. GENERAL: Not in acute distress. Alert and oriented x3. Cooperative on examination. HEENT: Head; normocephalic, atraumatic. Eyes; pupils are equal, round, and reactive to light bilaterally. Extraocular movements are intact bilaterally. Throat; no evidence of erythema or exudates in the posterior pharynx. Has poor dentition. NECK: Supple. Good range of motion. PULMONARY: He does have positive rales, but much improved. No crackles. Good inspiratory effort. CARDIOVASCULAR: Positive S1 and S2. No murmurs, rubs, or gallops appreciated. ABDOMEN: Soft, nondistended, and nontender to palpation. Bowel sounds present. MUSCULOSKELETAL: Strength is 5/5 throughout. No evidence of any muscle deficits on examination. No weakness appreciated. NEUROLOGIC: Cranial nerves II through XII are grossly intact. No evidence of any neurological deficits on exam. SKIN: Right lower extremity redness with erythema with underlying cellulitis. PSYCHIATRIC: Normal affect and mood. EXTREMITIES: He has does have 2+ pedal edema, but improving. LABORATORY DATA: Labs show white count is 12.6, hemoglobin 13, hematocrit is 41, and platelets of 346. Coagulation; PT 14, INR 1.1, PTT is 28. Chemistry; sodium 137, potassium 4, chloride 89, bicarb 42, anion gap of 10, BUN 14, creatinine 0.87, glucose 113, magnesium was 2.2, phosphorus was 3. His LFTs within normal range. CK was 368, albumin 2.3. TSH is 0.599. MICROBIOLOGY: Blood cultures and urine cultures were no growth. IMAGING STUDIES: Chest x-ray this morning shows cardiomegaly, pulmonary vascular congestion. Stable left basilar airspace disease, either atelectasis or infiltrate. IMPRESSION: 1. Shows right lower extremity cellulitis with underlying redness and swelling. 2. Acute respiratory distress, now on nasal cannula. 3. Hypertension. 4. Mild rhabdomyolysis. 5. Leukocytosis secondary to underlying infection from cellulitis. 6. Sepsis secondary to cellulitis with leukocytosis. 7. Benign prostatic hyperplasia. PLAN: At this time, we will continue with IV diuretics for diuresis. Venous Doppler was negative for DVT. Continue with aggressive IV antibiotic therapy. Monitor cultures closely. ID is following. In relation to his respiratory status, he has improved tremendously. He is on nasal cannula. We will put him on Diamox and IV Lasix for increased diuresis. A 2D echo just shows evidence of diastolic dysfunction, but his EF of 55% seen. Likely has some diastolic heart dysfunction. Continue with diuretics and neb treatments. Get a.m. labs. I had a long discussion with him about diet and exercise regimen and even possibly seeing a bariatric surgeon as an outpatient. He verbalized understanding. He is on Lovenox for DVT prophylaxis. CONSULTANTS: ID and Pulmonary. Otherwise, we will transfer to medical tele floor and monitor closely. MD JUNIOR Borja/[place]AD /[id number]
--- NOTE | 2019-07-20 17:47 | NUR ---
Safe to ambulate with bariatric RW. No intense pain RLE on WB. Recommend bariatric RW and bariatric 3-1 BSC for home use. Addendum: 07/20/19 at 1749 by Lan Browne PT Amended: Links added.
[2019-07-20] MEDS: ACETAZOLAMIDE SODIUM 500 MG/VIAL IV SCH (21:58)
--- NOTE | 2019-07-20 23:03 | NUR ---
PT ON TELE BOX #6,RUNNING SINUS RHYTHM.
--- NOTE | 2019-07-20 23:03 | NUR ---
RECEIVED PT FROM ICU VIA HOSPITAL BED AT THIS TIME.PT AAO X 3.NO S/S OF DISTRESS NOTED.RESPIRATIONS EVEN/NON LABORED.PT ON 4 LPM VIA NC.PT HAS IV TO LEFT WRIST AREA 20G INTACT AND PATENT.RIGHT LOWER EXTREMITY NOTED WITH 3+ EDEMA,REDNESS,WARMTH.BLISTER NOTED TO RLE,ELEVATED ON PILLOWS.AIR PUMP ATTACHED TO MATTRESS.BED POSITIONED IN THE LOWEST/LOCKED.INSTRUCTED PT TO CALL FOR ASSISTANCE NEEDED BY USING CALL LIGHT.PT VERBALIZED UNDERSTANDING.CALL LIGHT WITHIN EASY REACH.
[2019-07-21] VITALS (7 sets, daily range): BP systolic 117–149; BP diastolic 80–98
[2019-07-21] MEDS: FUROSEMIDE INJ 10 MG/ML 4 ML VIAL IV SCH ×2 (04:19→11:16)
[2019-07-21] MEDS: CEFEPIME 1GM/NS 0.9% 50 ML 50 ML IV SCH ×2 (04:25→16:28)
[2019-07-21 05:31] LABS: BASOPHILS # (AUTO) 0.1 (0.0-0.1); BASOPHILS % 0.9 % (0.0-1.0); EOSINOPHILS # (AUTO) 0.4 (0.0-0.4); EOSINOPHILS % 2.7 % (0.0-6.0); HEMOGLOBIN 14.1 g/dL (14.0-18.0); LYMPHOCYTES # (AUTO) 1.5 (1.0-3.2); LYMPHOCYTES % 11.1 % (18.0-39.1); MEAN CORPUSCULAR HEMOGLOBIN 29.9 pg (28-32); MEAN CORPUSCULAR VOLUME 93.2 fL (81-99); MONOCYTES # (AUTO) 1.3 (0.2-0.8); MONOCYTES % 10.1 % (4.4-11.3); NEUTROPHILS # (AUTO) 9.6 (2.1-6.9); NEUTROPHILS % 72.8 % (38.7-80.0); PLATELET COUNT 416 x10e3/uL (140-360); RED BLOOD COUNT 4.72 x10e6/uL (4.3-5.7); RED CELL DISTRIBUTION WIDTH 13.3 % (11.7-14.4)
[2019-07-21 05:56] LABS: BLOOD UREA NITROGEN 11 mg/dL (7-26); BUN/CREATININE RATIO 13 (6-25); CALCIUM 9.7 mg/dL (8.4-10.2); CARBON DIOXIDE 33 mmol/L (22-29); CHLORIDE 95 mmol/L (98-107); CREATININE, SERUM 0.86 mg/dL (0.72-1.25); EST GLOMERULAR FILTRATION RATE > 60 ML/MIN (60-); GLUCOSE 118 mg/dL (74-118); MAGNESIUM 2.3 MG/DL (1.3-2.1); SODIUM 139 mmol/L (136-145)
[2019-07-21] MEDS: ACETAZOLAMIDE SODIUM 500 MG/VIAL IV SCH ×2 (06:18→13:57)
--- NOTE | 2019-07-21 06:54 | NUR ---
RECEIVED PATIENT RESTING IN BED. NO ACUTE DISTRESS NOTED. DENIES PAIN OR DISCOMFORT AT THIS TIME. CALL LIGHT WITHIN REACH. BED IN THE LOWEST POSITION.
--- NOTE | 2019-07-21 07:07 | NUR ---
BEDSIDE SHIFT REPORT GIVEN TO ONCOMING NURSE.PT SITTING UP IN RECLINER CHAIR WITH NO S/S OF DISTRESS.
[2019-07-21 08:06] LABS: EOSINOPHILS % (MANUAL) 2 % (0-7); LYMPHOCYTES % (MANUAL) 11 % (19-48); MONOCYTES % (MANUAL) 10 % (3.4-9.0); NEUTROPHILS % (MANUAL) 77 % (40-74)
[2019-07-21 08:07] LABS: PLATELET ESTIMATE MODERATELY INCREASED; RBC MORPHOLOGY COMMENT NORMAL
[2019-07-21] MEDS: VANCOMYCIN 1GM/NS 250 ML 250 ML IV SCH ×2 (08:45→21:02)
--- NOTE | 2019-07-21 14:20 | NUR ---
PULMONARY MEDICINE Date of encounter: 07/21/2019 SUBJECTIVE: leg with less red area, but still hot on the lower leg bipap 3 hrs last night 3 L/min oxygen eating, BM CXR yesterday with LLL atelectasis/elevated diaphragm already present prior to admit REVIEW OF SYSTEMS: no headaches, no rash OBJECTIVE: VITAL SIGNS: Reviewed per record HEENT: Normocephalic and atraumatic. NECK: Supple. Throat midline. LUNGS: Bilateral air entry, decreased air entry CARDIOVASCULAR: S1 and S2. No murmurs, rubs, or gallops. ABDOMEN: Soft, obese, nontender. EXTREMITIES: No clubbing. No cyanosis. 3+ edema to right leg, warm and red to above the knee. INTEGUMENT: No flo cuts. No rash. LABORATORY DATA: k 4.0, cr .86. 13 wbc, plt 416. hct 44 IMPRESSION AND PLAN: 1. Severe right lower extremity cellulitis. 2. Encephalopathy, toxic/ metabolic /CO2 narcosis. 3. Tachycardia, severe sepsis. 4. Hypoxemia, multifactorial. Atelectasis, possible early secondary lung injury, possible other etiologies. Possible hypoventilation. 5. Obesity, possible obstructive sleep apnea. 6. History of hypertension. 7. Hyperlipidemia. 8. History of prostate surgery. 9. Left-sided atelectasis vs other Aggressive antibiotics per ID. Still very red and hot low on the leg BIPAP for IVIS PRN blood gas analysis diuretics as tolerated dvt ppx Thank you very much, Dr. Torres, for this consult.
[2019-07-21] MEDS: ACETAMINOPHEN 325 MG TAB PO PRN (14:26)
--- NOTE | 2019-07-21 14:42 | NUR ---
Received order for bariatric bedside commode. Spoke to pt at bedside. Choice letter signed for [facility] and [employer]. Choice letter placed in chart. Copy to pt. Therapy also recommending bariatric walker, but pt declines need. Referral for 3-in-1 was faxed to [facility]. Samia Acevedo, rep with [employer], was informed of referral.
[2019-07-21] MEDS: ENOXAPARIN SOD INJ 40 MG/0.4 ML SYR SC SCH (16:28)
--- NOTE | 2019-07-21 16:28 | Progress Note ---
DATE: 07/21/2019 Medicine Progress Note SUBJECTIVE: The patient is doing much better today with no complaints. He is still on 4 L nasal cannula. Work on trying to wean him to off. His right lower extremity cellulitis seems to have improved tremendously, but still very red on exam. No overnight events. He is afebrile, doing well with no other issues. On vital signs; temperature is 97.6, pulse 82, respiratory rate is 20, blood pressure 135/94, pulse ox 97%, he is on 4 L nasal cannula. LABORATORY FINDINGS: Show white count is 13, hemoglobin 14, hematocrit 44, and platelets of 416. Chemistry; sodium 139, potassium 4, chloride 95, bicarbonate 33, anion gap of 15, BUN 11, creatinine is 0.11, glucose is 118, hemoglobin A1c 6.2, magnesium 2.3, LDL 37, TSH is 0.599. Microbiology; blood and urine cultures no growth. IMAGING STUDIES: None. PHYSICAL EXAMINATION: GENERAL: Not in acute distress. Alert, oriented x3. Cooperative on exam. HEENT: Head is normocephalic, atraumatic. Eyes; pupils are equal, round, and reactive to light bilaterally. Extraocular movements are intact bilaterally. Neck was supple. Good range of motion. Throat; no evidence of erythema or exudates in the posterior pharynx. Has poor dentition. PULMONARY: Clear to auscultation bilaterally. No wheezing, rales, or rhonchi. No crackles appreciated. CARDIOVASCULAR: Positive S1 and S2. No murmurs, rubs, or gallops appreciated. ABDOMEN: Soft, nondistended, and nontender to palpation. Bowel sounds are present. MUSCULOSKELETAL: Strength is 5/5 throughout. No evidence of any muscle deficits on examination. No weakness appreciated. NEUROLOGIC: Cranial nerves II through XII grossly intact. No evidence of any neurological deficits on exam. SKIN: Intact. Warm to touch. He has right lower extremity cellulitis with redness much improved, but still warm to touch. PSYCHIATRIC: Normal affect and mood. EXTREMITIES: No edema. Good range of motion throughout. IMPRESSION: 1. Right lower extremity cellulitis with leg redness and swelling. 2. Acute respiratory distress, on nasal cannula, likely to be obesity, hyperventilation syndrome versus some other etiology. 3. Hypertension. 4. Mild rhabdomyolysis. 5. Leukocytosis secondary to underlying infection and cellulitis. 6. Sepsis secondary to cellulitis and leukocytosis. 7. Benign prostatic hyperplasia. PLAN: At this time, continue with broad-spectrum IV antibiotics. Continue with IV diuresis. His venous Doppler was found to be negative. ID is following very closely. In terms of his respiratory issues, Pulmonary is consulted. He is still on nasal cannula. He will likely be discharged on nasal cannula. Continue with same plan of care. No changes. Get morning labs. Discussed plan of care with the patient, with nurse present throughout the entire conversation. MD JUNIOR Borja/HUANGL /[id number]
--- NOTE | 2019-07-21 17:23 | Progress Note ---
DATE: SUBJECTIVE: Mr. Kwon is doing better. He left the ICU. He is currently in medical floor. No complaints. The leg remains red and swollen. REVIEW OF SYSTEMS: HEENT: Negative. PULMONARY: Negative. CARDIAC: Negative. PHYSICAL EXAMINATION: GENERAL: Currently alert, oriented, obese, does not seem to be in acute distress. VITAL SIGNS: Stable, currently afebrile. HEENT: Not icteric. NECK: Supple. CHEST: Clear. HEART: S1, S2. No murmurs. ABDOMEN: Soft. EXTREMITIES: The leg has erythema and edema all the way to the midthigh. IMPRESSION: 1. Right lower extremity cellulitis, very slow progress. He would need a PICC line. Continue IV antibiotic. 2. Acute respiratory failure, resolved. 3. Obesity. 4. Hypertension. 5. We will get a PICC line, we will arrange home IV antibiotic, would like to see how he is going to do next few days. MD DANIA Manning/[place] /[id number]
--- NOTE | 2019-07-21 19:10 | NUR ---
REPORT GIVEN TO ONCOMING NURSE. WALKING ROUNDS DONE. PATIENT IS IN STABLE CONDITION. DENIES PAIN OR DISCOMFORT AT THIS TIME. CALL LIGHT WITHIN REACH. BED IN THE LOWEST POSITION.
[2019-07-22] VITALS (7 sets, daily range): BP systolic 115–153; BP diastolic 69–96
[2019-07-22] MEDS: CEFEPIME 1GM/NS 0.9% 50 ML 50 ML IV SCH ×2 (04:27→16:03)
--- NOTE | 2019-07-22 06:48 | NUR ---
RECEIVED PATIENT RESTING IN BED. NO ACUTE DISTRESS NOTED. NO S/S OF PAIN NOTED AT THIS TIME. CALL LIGHT WITHIN REACH. BED IN THE LOWEST POSITION.
--- NOTE | 2019-07-22 06:54 | NUR ---
REPORT GIVEN TO ONCOMING NURSE,WALKING ROUNDS MADE.PT RESTING IN BED WITH NO S/S OF DISTRESS.
[2019-07-22] MEDS: VANCOMYCIN 1GM/NS 250 ML 250 ML IV SCH ×2 (08:40→21:43)
--- NOTE | 2019-07-22 15:12 | NUR ---
PULMONARY MEDICINE Date of encounter: 07/22/2019 SUBJECTIVE: Leg still warm, red 1 L/min oxygen standby assist to mobilize BM eating well REVIEW OF SYSTEMS: no headaches, no rash OBJECTIVE: VITAL SIGNS: Reviewed per record HEENT: Normocephalic and atraumatic. NECK: Supple. Throat midline. LUNGS: Bilateral air entry, decreased air entry CARDIOVASCULAR: S1 and S2. No murmurs, rubs, or gallops. ABDOMEN: Soft, obese, nontender. EXTREMITIES: No clubbing. No cyanosis. 3+ edema to right leg, warm and red to above the knee. INTEGUMENT: No flo cuts. No rash. LABORATORY DATA: 4.0 k, cr .9. 13 wbc. 44 hct. plt 416 IMPRESSION AND PLAN: 1. Severe right lower extremity cellulitis. 2. Encephalopathy, toxic/ metabolic /CO2 narcosis. 3. Tachycardia, severe sepsis. 4. Hypoxemia, multifactorial. Atelectasis, possible early secondary lung injury, possible other etiologies. Possible hypoventilation. 5. Obesity, possible obstructive sleep apnea. 6. History of hypertension. 7. Hyperlipidemia. 8. History of prostate surgery. 9. Left-sided atelectasis vs other Aggressive antibiotics per ID. Still red and hot on the leg BIPAP for IVIS diuretics as tolerated dvt ppx wean oxygen if feasible Thank you very much, Dr. Torres, for this consult.
[2019-07-22] MEDS: ENOXAPARIN SOD INJ 40 MG/0.4 ML SYR SC SCH (16:03)
--- NOTE | 2019-07-22 17:08 | Progress Note ---
DATE: 07/22/2019 Medicine Progress Note SUBJECTIVE: The patient is doing well today with no other complaints. He is on nasal cannula still. He is breathing well. His right lower extremity cellulitis seems to have improved, but now is starting to be conformed to one area. He still has significant number of days with IV antibiotic therapy. He still has pain in the right lower extremity as well. PHYSICAL EXAMINATION: VITAL SIGNS: Temperature is 97.7, pulse 88, respiratory rate is 20, blood pressure 149/90, pulse ox 96% on room air. GENERAL: Not in acute distress. Alert and oriented x3. Cooperative on exam. HEENT: Head is normocephalic, atraumatic. Eyes; pupils are equal, round, and reactive to light bilaterally. Extraocular movements are intact bilaterally. Throat; no evidence of erythema or exudates in the posterior pharynx. Has poor dentition. NECK: Supple. Good range of motion. PULMONARY: Clear to auscultation bilaterally. No wheezing. No rales. No rhonchi. No crackles appreciated. CARDIOVASCULAR: Positive S1 and S2. No murmurs, rubs, or gallops appreciated. ABDOMEN: Soft, nondistended, and nontender to palpation. Bowel sounds are present. MUSCULOSKELETAL: Strength is 5/5 throughout. No evidence of any muscle deficits on examination. No weakness appreciated. NEUROLOGIC: Cranial nerves II through XII grossly intact. No evidence of any neurological deficits on exam. SKIN: Intact. Warm to touch. Good cap refill. PSYCHIATRIC: Normal affect and mood. EXTREMITIES: No edema. Good range of motion throughout. LABORATORY DATA: Lab findings show white count is 13.1, hemoglobin 14, hematocrit is 44, platelets of 416. Chemistry; sodium 139, potassium 4, chloride 95, bicarbonate 33, anion gap of 15, BUN is 11, creatinine is 0.86, glucose 118, magnesium 2.3. LDL is 37. TSH 0.599. MICROBIOLOGY: Blood cultures no growth to date. Urine cultures were negative. IMAGING STUDIES: None. IMPRESSION: 1. Right lower extremity cellulitis with leg redness and swelling, improving but still significantly red, but no evidence of any abscess, but indurated. 2. Acute respiratory distress, on nasal cannula, improving, likely secondary to obesity hypoventilation syndrome versus obstructive sleep apnea versus other etiology. 3. Hypertension. 4. Mild rhabdomyolysis. 5. Leukocytosis secondary to underlying infection and cellulitis. 6. Sepsis secondary to cellulitis and leukocytosis. 7. Benign prostatic hyperplasia. PLAN: At this time, his right lower extremity cellulitis is improving, but still significantly erythemic. It is indurated. No evidence of any fluid collection or fluctuance. At this time, we will continue with aggressive IV antibiotic therapy. Discuss with ID if possible needing a PICC line and IV antibiotics for home. He is not ready for discharge any time soon. He is still on nasal cannula. Our goal is to wean him off oxygen if he can, if he cannot we will have to arrange for home O2. Pulmonary is following in that aspect. Otherwise, the patient is improving. I encouraged him to ambulate around the hospital to see how he feels. We will continue with same chronic care and monitor closely. Pulmonary and ID is following on this case. MD JUNIOR Borja/[place]AD /[id number]
--- NOTE | 2019-07-22 19:02 | NUR ---
REPORT GIVEN TO ONCOMING NURSE. WALKING ROUNDS DONE. PATIENT IS RESTING IN RECLINER. NO ACUTE DISTRESS NOTED. CALL LIGHT WITHIN REACH. BED IN THE LOWEST POSITION.
[2019-07-23] VITALS (9 sets, daily range): BP systolic 103–163; BP diastolic 66–87
[2019-07-23] MEDS: CEFEPIME 1GM/NS 0.9% 50 ML 50 ML IV SCH ×2 (04:22→17:39)
[2019-07-23 05:35] LABS: BASOPHILS # (AUTO) 0.1 (0.0-0.1); BASOPHILS % 0.6 % (0.0-1.0); EOSINOPHILS # (AUTO) 0.3 (0.0-0.4); EOSINOPHILS % 2.2 % (0.0-6.0); HEMATOCRIT 43.1 % (38.2-49.6); HEMOGLOBIN 14.3 g/dL (14.0-18.0); LYMPHOCYTES # (AUTO) 1.2 (1.0-3.2); LYMPHOCYTES % 9.4 % (18.0-39.1); MEAN CORPUSCULAR HEMOGLOBIN 30.3 pg (28-32); MEAN CORPUSCULAR HGB CONC 33.2 g/dL (31-35); MEAN CORPUSCULAR VOLUME 91.3 fL (81-99); MONOCYTES # (AUTO) 1.2 (0.2-0.8); MONOCYTES % 9.1 % (4.4-11.3); NEUTROPHILS # (AUTO) 10.2 (2.1-6.9); NEUTROPHILS % 77.1 % (38.7-80.0); PLATELET COUNT 409 x10e3/uL (140-360); RED BLOOD COUNT 4.72 x10e6/uL (4.3-5.7); RED CELL DISTRIBUTION WIDTH 13.3 % (11.7-14.4)
[2019-07-23 06:03] LABS: BLOOD UREA NITROGEN 12 mg/dL (7-26); BUN/CREATININE RATIO 15 (6-25); CARBON DIOXIDE 27 mmol/L (22-29); CHLORIDE 99 mmol/L (98-107); EST GLOMERULAR FILTRATION RATE > 60 ML/MIN (60-); GLUCOSE 117 mg/dL (74-118); SODIUM 136 mmol/L (136-145)
[2019-07-23] MEDS: VANCOMYCIN 1GM/NS 250 ML 250 ML IV SCH ×2 (09:00→20:30)
[2019-07-23] MEDS ORDERED: MORPHINE SULFATE INJ 4 MG/ML INJ 1ML IV PRN (12:30)
[2019-07-23] MEDS ORDERED: MORPHINE SULFATE 2 MG/ML SYR 1ML IV PRN (12:45)
[2019-07-23] MEDS ORDERED: POTASSIUM CHLORIDE 20 MEQ TAB CR PO ONE (13:51)
--- NOTE | 2019-07-23 13:51 | NUR ---
PULMONARY MEDICINE Date of encounter: 07/23/2019 SUBJECTIVE: RA fio2 used some bipap at night slept partially sitting up in the chair BM REVIEW OF SYSTEMS: no headaches, no rash OBJECTIVE: VITAL SIGNS: Reviewed per record HEENT: Normocephalic and atraumatic. NECK: Supple. Throat midline. LUNGS: Bilateral air entry, decreased air entry CARDIOVASCULAR: S1 and S2. No murmurs, rubs, or gallops. ABDOMEN: Soft, obese, nontender. EXTREMITIES: No clubbing. No cyanosis. 2-3+ edema to right leg, warm and red to above the knee. INTEGUMENT: No flo cuts. No rash. LABORATORY DATA: 4.0 k, cr .8. 13 wbc. hct 43. plt 409 IMPRESSION AND PLAN: 1. Severe right lower extremity cellulitis. 2. Encephalopathy, toxic/ metabolic /CO2 narcosis. 3. Tachycardia, severe sepsis. 4. Hypoxemia, multifactorial. Atelectasis, possible early secondary lung injury, possible other etiologies. Possible hypoventilation. 5. Obesity, possible obstructive sleep apnea. 6. History of hypertension. 7. Hyperlipidemia. 8. History of prostate surgery. 9. Left-sided atelectasis vs other Aggressive antibiotics per ID. Still red and hot on the leg BIPAP for VIIS diuretics as tolerated dvt ppx wean oxygen if feasible Thank you very much, Dr. Torres, for this consult.
[2019-07-23] MEDS: FUROSEMIDE INJ 10 MG/ML 4 ML VIAL IV SCH ×2 (14:47→22:04)
--- NOTE | 2019-07-23 15:04 | Progress Note ---
DATE: 07/23/2019 Medicine Progress Note SUBJECTIVE: The patient reportedly doing well today with no complaints. He is afebrile. His right lower extremity cellulitis seems to have improved little bit, but still red and erythematic. PHYSICAL EXAMINATION: VITAL SIGNS: Temperature is 98.3, pulse 86, respiratory rate is 18, blood pressure 103/77, pulse ox 94%. He is on room air when I evaluated him. GENERAL: Not in acute distress. Alert and oriented x3. Cooperative on exam. HEENT: Head is normocephalic, atraumatic. Eyes; pupils are equal, round, and reactive to light bilaterally. Extraocular movements are intact bilaterally. Throat; no evidence of erythema or exudates in the posterior pharynx. Has poor dentition. NECK: Supple. Good range of motion. PULMONARY: Clear to auscultation bilaterally. No wheezing. No rales. No rhonchi. No crackles appreciated. CARDIOVASCULAR: Positive S1 and S2. No murmurs, rubs, or gallops appreciated. ABDOMEN: Soft, nondistended, and nontender to palpation. Bowel sounds are present. MUSCULOSKELETAL: Strength is 5/5 throughout. No evidence of any muscle deficits on examination. No weakness appreciated. NEUROLOGIC: Cranial nerves II through XII grossly intact. No evidence of any neurological deficits on exam. SKIN: Right lower extremity cellulitis with erythema. Tender to palpation. Seems to be improving, but still significant on examination. PSYCHIATRIC: Normal affect and mood. EXTREMITIES: No edema. Good range of motion throughout. LAB FINDINGS: Show white count is 13.2, hemoglobin 14, hematocrit 43, platelets of 409. Coagulation, PT 14 INR 1.1, PTT 28. Chemistries: Sodium 136, potassium 4, chloride 99, bicarb 27, anion gap 14, BUN is 12, creatinine 0.8, calcium is 10, magnesium is 2.3. MICROBIOLOGY: Blood and urine cultures were negative. IMAGING STUDIES: None. IMPRESSION: 1. Right lower extremity cellulitis with leg redness and swelling, improving but still slightly red, still very erythematic, but no evidence of any abscess or any induration or fluctuance. 2. Acute respiratory distress, now on room air, could be secondary to obesity, hypoventilation syndrome as well as obstructive sleep apnea. 3. Hypertension. 4. Mild rhabdomyolysis likely due to underlying cellulitis in the right lower extremity. 5. Leukocytosis secondary to underlying infection cellulitis. 6. Sepsis secondary to cellulitis and leukocytosis. 7. Benign prostatic hyperplasia. PLAN: At this time, he continues to be on aggressive IV antibiotic therapy. ID is following. I discussed the case with Infectious Disease, recommends an IV PICC line, which I had ordered. They are arranging IV antibiotics as an outpatient for 2 total weeks. I discussed this with the patient. He verbalized understanding. In terms of his pulmonary issues, he is currently doing well. He is off nasal cannula. He is on room air during my evaluation. He will likely need a sleep study as an outpatient. He is otherwise doing very well. His labs are stable. We will get a.m. labs and follow with Pulmonary and ID recommendations. MD JUNIOR Borja/[place]AD /[id number]
[2019-07-23] MEDS: ENOXAPARIN SOD INJ 40 MG/0.4 ML SYR SC SCH (16:47)
--- NOTE | 2019-07-23 17:14 | Diagnostic Imaging Report ---
EXAMINATION: CHEST XRAY LINE PLACEMENT INDICATION: Line placement COMPARISON: Chest radiograph of 07/20/2019 FINDINGS: LINES/TUBES:Interval placement of right PICC line terminating near the confluence of innominate veins. LUNGS:The lungs are moderately inflated. Persistent left basilar airspace opacity. PLEURA:Likely small left pleural effusion. No pneumothorax. MEDIASTINUM:Cardiomediastinal silhouette is stably enlarged. BONES/SOFT TISSUES:No acute osseous injury. ABDOMEN:No free air under the diaphragm. IMPRESSION: Interval placement of right PICC line terminating near the confluence of innominate veins. Persistent left basilar airspace opacity may represent atelectasis or superimposed aspiration or pneumonia. Signed by: Adrian Cortez MD on 07/23/2019 5:10 PM
[2019-07-23] MEDS: HYDROCODONE/APAP 10MG-325MG TAB PO PRN ×2 (17:40→23:56)
[2019-07-23] MEDS ORDERED: SODIUM CHLORIDE 0.9% 500ML 500 ML ONE (20:06)
--- NOTE | 2019-07-23 20:50 | Diagnostic Imaging Report ---
EXAMINATION: CHEST XRAY LINE PLACEMENT INDICATION: ^picc ^[id number] ^[id number] COMPARISON: Chest radiograph 07/23/2019 FINDINGS: AP view TUBES and LINES: Interval advancement of the right PICC, with tip now overlying the mid SVC. LUNGS: Lungs are well inflated. Unchanged bibasilar airspace opacities. PLEURA: No pleural effusion or pneumothorax. HEART AND MEDIASTINUM: The cardiomediastinal silhouette is unremarkable.. BONES AND SOFT TISSUES: No acute osseous lesion. Soft tissues are unremarkable. UPPER ABDOMEN: No free air under the diaphragm. IMPRESSION: Interval advancement of the right PICC with tip now overlying the mid SVC. Signed by: Dr. Amanda Blanton M.D. on 07/23/2019 8:47 PM
[2019-07-24] VITALS (9 sets, daily range): BP systolic 119–147; BP diastolic 70–93
[2019-07-24 04:50] LABS: BASOPHILS # (AUTO) 0.1 (0.0-0.1); BASOPHILS % 0.6 % (0.0-1.0); EOSINOPHILS # (AUTO) 0.4 (0.0-0.4); EOSINOPHILS % 2.8 % (0.0-6.0); HEMATOCRIT 43.3 % (38.2-49.6); HEMOGLOBIN 14.1 g/dL (14.0-18.0); LYMPHOCYTES # (AUTO) 1.7 (1.0-3.2); LYMPHOCYTES % 13.4 % (18.0-39.1); MEAN CORPUSCULAR HGB CONC 32.6 g/dL (31-35); MEAN CORPUSCULAR VOLUME 92.1 fL (81-99); MONOCYTES # (AUTO) 1.2 (0.2-0.8); MONOCYTES % 9.5 % (4.4-11.3); NEUTROPHILS # (AUTO) 9.3 (2.1-6.9); NEUTROPHILS % 72.6 % (38.7-80.0); PLATELET COUNT 381 x10e3/uL (140-360); RED CELL DISTRIBUTION WIDTH 13.4 % (11.7-14.4)
[2019-07-24] MEDS: CEFEPIME 1GM/NS 0.9% 50 ML 50 ML IV SCH ×2 (04:55→17:01)
[2019-07-24 05:12] LABS: ANION GAP 13.8 mmol/L (8-16); BLOOD UREA NITROGEN 11 mg/dL (7-26); BUN/CREATININE RATIO 14 (6-25); CALCIUM 9.5 mg/dL (8.4-10.2); CARBON DIOXIDE 32 mmol/L (22-29); CHLORIDE 96 mmol/L (98-107); EST GLOMERULAR FILTRATION RATE > 60 ML/MIN (60-); GLUCOSE 113 mg/dL (74-118); POTASSIUM 3.8 mmol/L (3.5-5.1); SODIUM 138 mmol/L (136-145)
[2019-07-24] MEDS: FUROSEMIDE INJ 10 MG/ML 4 ML VIAL IV SCH (06:00)
[2019-07-24] MEDS: VANCOMYCIN 1GM/NS 250 ML 250 ML IV SCH ×2 (11:06→21:14)
--- NOTE | 2019-07-24 11:30 | NUR ---
Spoke with Fabiana at Dr. Loya's office. States pt's abx has been approved. Will have about $800 copay, will need to pay half upfront. Pt can come into the office tomorrow morning at 10am if he discharges today. CM informed pt of approval and copay. Printed Dr. Loya's office information for pt. Gave pt CM's business card for any questions/concerns. Pending Dr. Torres's round for possible discharge. CM will update Dr. Loya's office if pt does not discharge today. [facility] Infectious Disease [address] [place] [address] TIKI also called Samia with [facility] [employer] regarding status of bariatric bedside commode. She stated that the office has been talking to pt and will arrange to have it delivered to his house.
[2019-07-24] MEDS: KETOROLAC TROMETHAMINE 30 MG/ML VIAL IV PRN (13:45)
--- NOTE | 2019-07-24 15:15 | Progress Note ---
DATE: 07/24/2019 Medicine Progress Note SUBJECTIVE: The patient's right lower extremity cellulitis, still significantly erythematic likely forming consolidation possibly, but no discharge. He still has pain, which I am going to adjust his pain medication accordingly. He has been afebrile. He is doing well otherwise. He is not ready for discharge at this time. PHYSICAL EXAMINATION: VITAL SIGNS: Temperature is 96.4, T-max is 98.6, pulse 84, respiratory rate is 19, blood pressure 120/86, pulse ox 95% on room air. GENERAL: Not in acute distress. Alert and oriented x3. Cooperative on examination. HEENT: Head; normocephalic, atraumatic. Eyes; pupils are equal, round, and reactive to light bilaterally. Extraocular movements are intact bilaterally. Throat; no evidence of erythema or exudates in the posterior pharynx. Has poor dentition. NECK: Supple. Good range of motion. PULMONARY: Clear to auscultation bilaterally. No wheezing. No rales. No rhonchi. No crackles appreciated. CARDIOVASCULAR: Positive S1 and S2. No murmurs, rubs, or gallops appreciated. ABDOMEN: Soft, nondistended, and nontender to palpation. Bowel sounds are present. MUSCULOSKELETAL: Strength is 5/5 throughout. No evidence of any muscle deficits on examination. No weakness appreciated. NEUROLOGIC: Cranial nerves II through XII grossly intact. No evidence of any neurological deficits on exam. SKIN: Intact. Warm to touch. Good cap refill. PSYCHIATRIC: Normal affect and mood. EXTREMITIES: Right lower extremity cellulitis with tender to palpation with erythremia. Warm to touch. Tender to palpation, but there is no evidence of any discharge. LABORATORY DATA: Lab findings show white count was 12.8, hemoglobin 14, hematocrit 43, platelets of 381. Chemistry; sodium 138, potassium 3.8, chloride 96, bicarb 32, anion gap of 13, BUN is 11, creatinine is 0.8. His glucose is 113, calcium is 9.5. His magnesium is 2.2, LDL is 37, TSH is 0.599. MICROBIOLOGY: Blood and urine cultures were negative. IMPRESSION: 1. Right lower extremity cellulitis with leg redness and swelling, improving but still slightly erythematic, tender to palpation, but there is no evidence of any abscess, but is very indurated likely forming a consolidation. 2. Acute respiratory distress, all resolved, now on room air, likely has underlying obesity, hypoventilation syndrome and obstructive sleep apnea. 3. Hypertension. 4. Rhabdomyolysis, resolved. 5. Leukocytosis due to underlying right lower extremity cellulitis. 6. Sepsis secondary to cellulitis and leukocytosis. 7. Benign prostatic hyperplasia. PLAN: At this time, I reached out to ID and Pulmonary, they feel that the patient should stay longer, which I totally agree. His right lower extremity cellulitis is still very erythematic, likely forming consolidation. I feel like he needs more aggressive IV antibiotic therapy at this time before being discharged. He does have a PICC line. IV antibiotics have been arranged as an outpatient. I will add Toradol for pain as well as inflammation. This may help his leg swelling as well as the pain. Otherwise, we will get a.m. labs. Monitor very closely. He is on Lovenox for DVT prophylaxis as well. I also encouraged for the patient to ambulate aggressively around the hospital so he does not get debilitated. I discussed the plan of care with the nursing staff as well as the patient and he verbalized understanding and agrees with plan of care. The patient is not eager to being discharged home. He understands that his right leg needs significant aggressive treatment. MD JUNIOR Borja/MODJaye /[id number]
--- NOTE | 2019-07-24 15:33 | NUR ---
Spoke to Dr. Loya who states pt will need to stay here for another day or two. Informed his office that pt not discharging today.
--- NOTE | 2019-07-24 16:26 | NUR ---
Nutrition LOS Note RD Recommendation(s) for Physician / Nutrition Prescription: continue with diet as prescribed Plan of Care: Patient has been screened and assessed for nutrition risk. At this time, the patient does not pose any nutrition risk. No further nutrition intervention is warranted at this time. Will re-evaluate if consulted by medical staff. Nutrition reason for involvement: LOS Primary Dx: Right lower extremity cellulitis with leg redness and swelling PMH: hypertension, hyperlipidemia, BPH Ht: 72in Wt: 352lb BMI: 47.7kg/m2 IBW: 178lb +/- 10% RD Assessment: (07/24) 58yo M, who was admitted for RLE cellulitis. Visited pt in the room. Pt reported good appetite. PCT recorded 100% meal intake. HbA1c at 6.2, non-diabetic. Pt denied any GI complains. Pt denied any chewing or swallowing issue. Weight has been stable. Current diet is appropriate and adequate. Current diet: cardiac diet Malnutrition Evaluation (07/24) The patient does not meet criteria for a specified degree of malnutrition at this time. Will re-evaluate at follow-up as appropriate. Diet Education Needs Assessment: Diet education not indicated. Nutrition Care Level: Low Keyana Cantu, MS, RD, LD
[2019-07-24] MEDS: ENOXAPARIN SOD INJ 40 MG/0.4 ML SYR SC SCH (17:01)
--- NOTE | 2019-07-24 21:28 | NUR ---
PULMONARY MEDICINE Date of encounter: 07/24/2019 SUBJECTIVE: slept in chair, pain in buttocks while in bed no bipap use last night RA FIO2 eating well REVIEW OF SYSTEMS: no headaches, no rash OBJECTIVE: VITAL SIGNS: Reviewed per record HEENT: Normocephalic and atraumatic. NECK: Supple. Throat midline. LUNGS: Bilateral air entry, decreased air entry CARDIOVASCULAR: S1 and S2. No murmurs, rubs, or gallops. ABDOMEN: Soft, obese, nontender. EXTREMITIES: No clubbing. No cyanosis. 2+ edema to right leg, warm. INTEGUMENT: No flo cuts. No rash. LABORATORY DATA: 3.8 k , cr 0.8. glucose 113. wbc 12.8, hct 43. IMPRESSION AND PLAN: 1. Severe right lower extremity cellulitis. 2. Encephalopathy, toxic/ metabolic /CO2 narcosis. Resolved 3. Tachycardia, severe sepsis. Better 4. Hypoxemia, multifactorial. left sided Atelectasis, possible early secondary lung injury, possible other etiologies. Possible hypoventilation. Improving 5. Obesity, possible obstructive sleep apnea. 6. History of hypertension. 7. Hyperlipidemia. 8. History of prostate surgery. Aggressive antibiotics per ID. Still red and hot on the leg BIPAP for IVIS, needs outpatient sleep studies diuretics as tolerated dvt ppx Thank you very much, Dr. Torres, for this consult.
[2019-07-25] VITALS (8 sets, daily range): BP systolic 109–143; BP diastolic 77–92
[2019-07-25] MEDS: CEFEPIME 1GM/NS 0.9% 50 ML 50 ML IV SCH ×2 (04:00→15:56)
[2019-07-25 05:27] LABS: BASOPHILS # (AUTO) 0.1 (0.0-0.1); BASOPHILS % 0.5 % (0.0-1.0); EOSINOPHILS # (AUTO) 0.4 (0.0-0.4); EOSINOPHILS % 3.4 % (0.0-6.0); HEMATOCRIT 41.4 % (38.2-49.6); HEMOGLOBIN 13.5 g/dL (14.0-18.0); LYMPHOCYTES # (AUTO) 1.4 (1.0-3.2); LYMPHOCYTES % 11.9 % (18.0-39.1); MEAN CORPUSCULAR HEMOGLOBIN 29.9 pg (28-32); MEAN CORPUSCULAR HGB CONC 32.6 g/dL (31-35); MEAN CORPUSCULAR VOLUME 91.8 fL (81-99); MONOCYTES % 8.3 % (4.4-11.3); NEUTROPHILS # (AUTO) 8.7 (2.1-6.9); NEUTROPHILS % 74.9 % (38.7-80.0); PLATELET COUNT 371 x10e3/uL (140-360); RED BLOOD COUNT 4.51 x10e6/uL (4.3-5.7); RED CELL DISTRIBUTION WIDTH 13.4 % (11.7-14.4)
[2019-07-25 05:47] LABS: ANION GAP 12.9 mmol/L (8-16); BLOOD UREA NITROGEN 12 mg/dL (7-26); BUN/CREATININE RATIO 15 (6-25); CALCIUM 9.7 mg/dL (8.4-10.2); CARBON DIOXIDE 31 mmol/L (22-29); CHLORIDE 95 mmol/L (98-107); CREATININE, SERUM 0.81 mg/dL (0.72-1.25); EST GLOMERULAR FILTRATION RATE > 60 ML/MIN (60-); GLUCOSE 124 mg/dL (74-118); POTASSIUM 3.9 mmol/L (3.5-5.1); SODIUM 135 mmol/L (136-145)
[2019-07-25] MEDS: KETOROLAC TROMETHAMINE 30 MG/ML VIAL IV PRN ×2 (07:05→22:28)
[2019-07-25] MEDS: VANCOMYCIN 1GM/NS 250 ML 250 ML IV SCH ×2 (08:43→22:23)
--- NOTE | 2019-07-25 11:56 | NUR ---
Spoke with Dr. Torres. He states pt told him he cannot afford the copay for IV abx at home. Also states pt's legs are not getting better, pt cannot go home yet. He spoke with pt regarding LTAC and pt was agreeable. LTAC order written. CM spoke to pt at bedside and pt signed choice for [facility]. Choice letter placed in chart. Copy to pt. Referral was faxed to [facility] at [phone]. Sheelaadriana Castro, with [facility] was notified of referral. [place] [id number] [place] [address]
--- NOTE | 2019-07-25 12:06 | Progress Note ---
DATE: 07/25/2019 Medicine Progress Note SUBJECTIVE: The patient is doing well today with no complaints. His right lower extremity cellulitis still is very erythematous, now he has some clear discharge present. He wants to go, he cannot pay the co-pay for the antibiotics. We offered him LTAC versus prison. He agreed to LTAC at this time. Discussed with Case Management. PHYSICAL EXAMINATION: VITAL SIGNS: He is afebrile, normotensive, pulse 72, respiratory rate is 18, blood pressure 143/80, saturating 95% on room air. GENERAL: Not in acute distress. Alert and oriented x3. Cooperative on examination. HEENT: Head; normocephalic, atraumatic. Eyes; pupils are equal, round, and reactive to light bilaterally. Extraocular movements are intact bilaterally. Throat; no evidence of erythema or exudates in the posterior pharynx. Has poor dentition. NECK: Supple. Good range of motion. PULMONARY: Clear to auscultation bilaterally. No wheezing. No rales. No rhonchi. No crackles appreciated. CARDIOVASCULAR: Positive S1 and S2. No murmurs, rubs, or gallops appreciated. ABDOMEN: Soft, nondistended, and nontender to palpation. Bowel sounds are present. MUSCULOSKELETAL: Strength is 5/5 throughout. No evidence of any muscle deficits on examination. No weakness appreciated. NEUROLOGIC: Cranial nerves II through XII grossly intact. No evidence of any neurological deficits on exam. SKIN: Intact. Warm to touch. Good cap refill. PSYCHIATRIC: Normal affect and mood. EXTREMITIES: His right lower extremity is erythematic, now has serosanguineous material with some skin sloughing present, spray machine tender to palpation on examination. LABORATORY DATA: Lab findings show white count 11.5, hemoglobin 13, hematocrit is 41, and platelets of 371. Chemistries are stable. IMPRESSION: 1. Right lower extremity cellulitis with right leg swelling and redness, very erythematic, tender to palpation with now skin sloughing and serosanguineous material discharge. 2. Acute respiratory distress. All resolved. 3. Hypertension. 4. Rhabdomyolysis, resolved. 5. Leukocytosis secondary to right lower extremity cellulitis. 6. Sepsis secondary to cellulitis. 7. Benign prostatic hyperplasia. PLAN: At this time, the patient cannot be the co-pay for IV antibiotic therapy. We will now try for a [facility]. He is currently on two antibiotics. It is beneficial for him to get daily wound care and IV antibiotic daily and have a new physician to evaluate his legs on a daily basis. He has agreed to put a Case Management order for [facility]. His labs were reviewed, seem to be stable. He is otherwise doing well. I did consult with wound care for local wound care treatments. Discussed case with consultants. MD JUNIOR Borja/NATIVIDAD /[id number]
[2019-07-25] MEDS ORDERED: FUROSEMIDE INJ 10 MG/ML 4 ML VIAL IV ONE (14:00)
[2019-07-25] MEDS ORDERED: POTASSIUM CHLORIDE 20 MEQ TAB CR PO ONE (14:00)
--- NOTE | 2019-07-25 17:50 | NUR ---
Dr Michel here and patient dressing applied. removed loose skin. applied betadine. abd. then kerlix and completed with coban wrap. patient tolerated well.
--- NOTE | 2019-07-25 20:23 | NUR ---
PULMONARY MEDICINE Date of encounter: 07/25/2019 SUBJECTIVE: patient did 4 hours bipap yesterday slept in chair leg still hot regionally edema+ REVIEW OF SYSTEMS: no headaches, no rash OBJECTIVE: VITAL SIGNS: Reviewed per record HEENT: Normocephalic and atraumatic. NECK: Supple. Throat midline. LUNGS: Bilateral air entry, decreased air entry CARDIOVASCULAR: S1 and S2. No murmurs, rubs, or gallops. ABDOMEN: Soft, obese, nontender. EXTREMITIES: No clubbing. No cyanosis. 2+ edema to right leg, warm. INTEGUMENT: No flo cuts. No rash. LABORATORY DATA: k 3.9, cr .81, 12 wbc, hct 42. plt 371 IMPRESSION AND PLAN: 1. Severe right lower extremity cellulitis. 2. Encephalopathy, toxic/ metabolic /CO2 narcosis. Resolved 3. Tachycardia, severe sepsis. Better 4. Hypoxemia, multifactorial. left sided Atelectasis, possible early secondary lung injury, possible other etiologies. Possible hypoventilation. Improving 5. Obesity, possible obstructive sleep apnea. 6. History of hypertension. 7. Hyperlipidemia. 8. History of prostate surgery. Aggressive antibiotics per ID. Still red and hot on the leg BIPAP for IVIS, needs outpatient sleep studies diuretics as tolerated intermittently redosing dvt ppx Thank you very much, Dr. Torres, for this consult.
[2019-07-25] MEDS: HYDROCODONE/APAP 10MG-325MG TAB PO PRN (23:30)
[2019-07-26 00:23] VITALS: BP 115/79
--- NOTE | 2019-07-26 01:13 | Operative Report ---
DATE OF PROCEDURE: SURGEON: Carmenza Franklin MD PROCEDURE: Wound debridement. PROCEDURE IN DETAIL: After explaining the procedure, I used a scissor and a picker tender helper, did a selective debridement, deals the blister on the right leg and there was no bleeding and edema fluid was drained from the blister and irrigated with normal saline. I applied iodine and left it for few minutes and then applied Adaptic, Aquacel, ABD, Kerlix, Coban for compression. The patient tolerated the procedure. We will continue compression and antibiotics. Carmenza Franklin MD TG/MODL /[id number]
[2019-07-26 04:40] VITALS: BP 123/84
[2019-07-26] MEDS: CEFEPIME 1GM/NS 0.9% 50 ML 50 ML IV SCH ×2 (04:57→16:25)
[2019-07-26] MEDS: HYDROCODONE/APAP 10MG-325MG TAB PO PRN (05:12)
--- NOTE | 2019-07-26 07:35 | Consultation ---
DATE OF CONSULTATION: Wound Consultation HISTORY OF PRESENT ILLNESS: 58-year-old male patient developed a right leg edema and cellulitis. The patient is morbidly obese with edema to the left, got infected. Wound consult was called. The patient has multiple blisters to the right leg. PAST MEDICAL HISTORY: Hypertension. ALLERGIES: PENICILLIN. PHYSICAL EXAMINATION: GENERAL: Blood pressure 135/94, pulse of 82, and temperature 97.6. Height is 6 feet, weight 352 pounds, BMI 47.7. HEENT: Normal. NECK: No JVD. LUNGS: Clear. CVS: Normal. ABDOMEN: Soft. Bowel sounds are normal. EXTREMITIES: Lower extremities, right lower extremity is swollen with a blister on the right anterior leg. ASSESSMENT: Right leg cellulitis with bullous lesion from edema and secondary cellulitis. PLAN: Selective debridement of the wound done to the right leg. The area cleaned with Betadine. Wound culture was taken before applying Betadine, applied Adaptic, Aquacel, ABD, Kerlix, Coban for compression. Continue antibiotics. MD NOAM Jeronimo/MODL /[id number]
[2019-07-26 08:02] LABS: BASOPHILS # (AUTO) 0.1 (0.0-0.1); EOSINOPHILS # (AUTO) 0.4 (0.0-0.4); EOSINOPHILS % 4.5 % (0.0-6.0); HEMATOCRIT 41.2 % (38.2-49.6); LYMPHOCYTES # (AUTO) 1.2 (1.0-3.2); LYMPHOCYTES % 13.3 % (18.0-39.1); MEAN CORPUSCULAR HEMOGLOBIN 29.3 pg (28-32); MEAN CORPUSCULAR HGB CONC 31.6 g/dL (31-35); MONOCYTES % 10.9 % (4.4-11.3); NEUTROPHILS # (AUTO) 6.2 (2.1-6.9); NEUTROPHILS % 69.7 % (38.7-80.0); PLATELET COUNT 332 x10e3/uL (140-360); RED BLOOD COUNT 4.43 x10e6/uL (4.3-5.7); RED CELL DISTRIBUTION WIDTH 13.4 % (11.7-14.4)
[2019-07-26 08:19] LABS: ANION GAP 13.9 mmol/L (8-16); BLOOD UREA NITROGEN 13 mg/dL (7-26); BUN/CREATININE RATIO 16 (6-25); CALCIUM 9.4 mg/dL (8.4-10.2); CARBON DIOXIDE 29 mmol/L (22-29); CHLORIDE 97 mmol/L (98-107); CREATININE, SERUM 0.83 mg/dL (0.72-1.25); EST GLOMERULAR FILTRATION RATE > 60 ML/MIN (60-); GLUCOSE 114 mg/dL (74-118); POTASSIUM 3.9 mmol/L (3.5-5.1); SODIUM 136 mmol/L (136-145)
[2019-07-26] MEDS: VANCOMYCIN 1GM/NS 250 ML 250 ML IV SCH (08:39)
[2019-07-26 08:55] VITALS: BP 111/56
[2019-07-26] MEDS ORDERED: FUROSEMIDE INJ 10 MG/ML 4 ML VIAL IV SCH (09:00)
--- NOTE | 2019-07-26 10:04 | NUR ---
Patient has been accepted to: [facility] [address] [place] [address] Accepting general administrator: Shasta Marvin Accepting MD: Dr. Torres Rm 220 Call report to [phone] The following documents must accompany patient for transfer: Copied chart: Yudith, service unit operator oil well MOT information received from: Sharmin Russell Physician's order/reconciled med list: bedside RN to obtain [id number] DNR: n/a MOT completed and placed with pt's packet at nurse's station. BASSAM Olivas was informed of MOT. Dr. Torres was notified of acceptance and states will DC pt when he rounds.
[2019-07-26 11:40] VITALS: BP 128/69
[2019-07-26 12:17] VITALS: BP 120/69
[2019-07-26] MEDS ORDERED: LIDOCAINE HCL 1% LOCAL INJ 20 ML VIAL ONE (14:21)
--- NOTE | 2019-07-26 14:21 | Diagnostic Imaging Report ---
EXAMINATION: CHEST SINGLE (PORTABLE) INDICATION: PICC placement COMPARISON: Chest radiograph of 07/23/2019 FINDINGS: LINES/TUBES:Right PICC line is well in the right subclavian vein and terminates in the right subclavian vein. LUNGS:The lungs are moderately inflated. Elevation of the left hemidiaphragm. Subsegmental atelectasis at the left lung base. No focal consolidation or pulmonary edema. PLEURA:No pleural effusion or pneumothorax. MEDIASTINUM:The cardiomediastinal silhouette appears unchanged in size and shape. BONES/SOFT TISSUES:No acute osseous injury. ABDOMEN:No free air under the diaphragm. IMPRESSION: Right PICC line coils and terminates in the right subclavian vein. RECOMMENDATION: Repositioning of PICC line. Signed by: Adrian Cortez MD on 07/26/2019 1:10 PM
[2019-07-26 16:30] VITALS: BP 128/76
--- NOTE | 2019-07-26 17:38 | Discharge Summary ---
FINAL DISCHARGE DIAGNOSES: 1. Right lower extremity cellulitis, status post drainage at bedside by Wound Care. 2. Acute respiratory distress-resolved, concerns for obesity-hypoventilation syndrome and obstructive sleep apnea. 3. Hypertension. 4. Rhabdomyolysis, resolved. 5. Sepsis secondary to cellulitis with leukocytosis, resolved. 6. Benign prostatic hypertrophy. CONSULTANTS: 1. Pulmonary Critical Care. 2. ID. 3. Wound Care. PHYSICAL EXAMINATION: VITAL SIGNS: Temperature is 97.3, pulse 77, respiratory rate is 20, blood pressure 120/69, and pulse ox 97% on room air. LABORATORY FINDINGS: Show white count 8.9, hemoglobin 13, hematocrit is 41, and platelets of 332. Coagulation; PT 14, INR 1.1, and PTT 28. Chemistry; sodium 136, potassium 3.9, chloride 97, bicarb 29, anion gap of 13, BUN is 13, creatinine is 0.83, glucose is 114, calcium is 9.4, and magnesium is 2.2. Total bilirubin is 0.5, AST 23 and ALT 26. Albumin was 2.3. LDL cholesterol was 37. His TSH was 0.599. His troponins were all negative. Urinalysis was negative. MICROBIOLOGY: Urine culture negative. Blood cultures negative. Wound cultures, no wbc's, no organisms seen. IMAGING STUDIES: Chest x-ray, stable left lower lung zone opacities, may reflect atelectasis and/or small volume pleural effusion. Bilateral lower extremity venous Doppler imaging shows no evidence of DVT. Repeat chest x-ray 07/20/2019, shows cardiomegaly, pulmonary vascular congestion, and then there is a chest x-ray post PICC line placement. HOSPITAL COURSE: This is a 58-year-old male, morbidly obese, came in with worsening right lower extremity cellulitis with redness, erythema, found to be septic and respiratory distress, and was sent to the ICU. Pulmonary Critical Care was consulted. The patient was found to have elevated pCO2, requiring BiPAP initially with much improvement. The patient did not need any intubation. He did not need any pressors. From a respiratory status, he improved tremendously and BiPAP was weaned off and he was on nasal cannula, then was on room air. He did require IV antibiotics and diuretics. He was managed by Pulmonary Critical Care. In relation to his sepsis from his lower extremity cellulitis, venous Doppler shows no evidence of DVT. Blood and urine cultures were negative and he was treated aggressively with IV antibiotics, being managed by ID. He did have some evidence of rhabdomyolysis, which improved throughout the hospital course. His hypertension was well controlled and stable. Wound Care was consulted. Local drainage around the wound was performed by the Wound Care team. The patient improved tremendously with no issues. His right lower extremity still shows significant amount of erythema, likely starting to develop possibly underlying abscess, but not evident at this time, but needs aggressive IV antibiotic therapy and daily wound care, which will be discharged to [facility] for daily wound care, IV antibiotic therapy, and daily doctor supervision. On discharge, the patient was doing well, cleared for discharge. On the day of discharge, vital signs were stable, labs reviewed and stable. The patient is seen and evaluated, and examined thoroughly on the day of discharge. No other complaints. The patient verbalized understanding and agrees to plan of care. He will follow up as an outpatient with the primary care physician in 1 week and Infectious Disease and Wound Care in about 2 to 3 weeks' time frame. MEDICATIONS: See med reconciliation form. DISPOSITION: [facility] transfer. CONDITION: Stable. DIET: Heart healthy. In the event of any worsening symptoms, the patient was advised to come back to the ED for further evaluation. Discharge summary took greater than 35 minutes. MD JUNIOR Borja/NATIVIDAD /[id number]
--- NOTE | 2019-07-26 21:57 | NUR ---
PULMONARY MEDICINE Date of encounter: 07/26/2019 SUBJECTIVE: leg still hot wrapped today lots of pain, poor sleep yesterday REVIEW OF SYSTEMS: no headaches, no rash OBJECTIVE: VITAL SIGNS: Reviewed per record HEENT: Normocephalic and atraumatic. NECK: Supple. Throat midline. LUNGS: Bilateral air entry, decreased air entry CARDIOVASCULAR: S1 and S2. No murmurs, rubs, or gallops. ABDOMEN: Soft, obese, nontender. EXTREMITIES: No clubbing. No cyanosis. 2+ edema to right leg, warm. INTEGUMENT: No flo cuts. No rash. LABORATORY DATA: k 3.9, co2 29, cr .83. 9 wbc IMPRESSION AND PLAN: 1. Severe right lower extremity cellulitis. 2. Encephalopathy, toxic/ metabolic /CO2 narcosis. Resolved 3. Tachycardia, severe sepsis. Better 4. Hypoxemia, multifactorial. left sided Atelectasis, possible early secondary lung injury, possible other etiologies. Possible hypoventilation. Improving 5. Obesity, possible obstructive sleep apnea. 6. History of hypertension. 7. Hyperlipidemia. 8. History of prostate surgery. Aggressive antibiotics per ID. Still red and hot on the leg BIPAP for IVIS, needs outpatient sleep studies diuretics as tolerated intermittently redosing local wound care dvt ppx Thank you very much, Dr. Torres, for this consult.
--- NOTE | 2019-07-30 12:53 | Diagnostic Imaging Report ---
PROCEDURE: Reposition of peripherally Inserted Central Catheter (PICC) Procedural Personnel Attending physician(s): Adrian Cortez MD Fellow physician(s): None Resident physician(s): None Advanced practice provider(s): None Pre-procedure diagnosis: Malpositioned PICC line Post-procedure diagnosis: Same Indication: PICC line coiled in right innominate vein. Additional clinical history: None Complications: No immediate complications. IMPRESSION: Repositioning of right-sided dual-lumen power-injectable PICC via high pressure injection of saline. Subsequent images show uncoiling of PICC line, which now terminates in the right innominate vein. Plan: The catheter may be used immediately. PROCEDURE SUMMARY: - Preprocedural images demonstrated right PICC line coiled in the right innominate vein. - PICC repositioning with fluoroscopic guidance - Additional procedure(s): None PROCEDURE DETAILS: Pre-procedure Consent: Informed consent for the procedure including risks, benefits and alternatives was obtained and time-out was performed prior to the procedure. Preparation (MIPS): The site was prepared and draped using all elements of maximal sterile barrier technique including sterile gloves, sterile gown, cap, mask, large sterile sheet, sterile ultrasound probe cover, hand hygiene and cutaneous antisepsis with 2% chlorhexidine. Medical reason for site preparation exception (MIPS): Not applicable Anesthesia/sedation Level of anesthesia/sedation: No sedation Catheter repositioning The catheter was injected forcefully with NS through a 3cc syringe. Subsequent images show uncoiling of the right PICC line which is now straight and terminates in the right innominate vein. Contrast Contrast agent: None Contrast volume (mL): N/A Radiation Dose Fluoroscopy time (minutes): 0.2 Reference air kerma (mGy): 3.5 Additional Details Additional description of procedure: None Equipment details: None Specimens removed: None Estimated blood loss (mL): None Standardized report: [id number] Attestation Signer name: Adrian Cortez MD I attest that I was present for the entire procedure. I reviewed the stored images and agree with the report as written. Signed by: Adrian Cortez MD on 07/30/2019 12:49 PM
== END 2019-07-26 16:47 | DRG 871 ==
LOC: ER 11:06 → ERHOLD 12:09 → MED/SURG2 16:14 → ICU 07-19 01:08 → MED/SURG2 07-20 23:01
PROVIDERS: ADMIT Internal Medicine; ATTEND Internal Medicine
PROC: 02HV33Z Insertion of Infusion Device into Superior Vena Cava, Percutaneous Approach (ICD-10-PCS; 2019-07-23)
PROC: B548ZZA Ultrasonography of Superior Vena Cava, Guidance (ICD-10-PCS; 2019-07-23)
PROC: 0HDKXZZ Extraction of Right Lower Leg Skin, External Approach (ICD-10-PCS; principal; 2019-07-25)
PROC: 02HV33Z Insertion of Infusion Device into Superior Vena Cava, Percutaneous Approach (ICD-10-PCS; 2019-07-26)
PROC: B548ZZA Ultrasonography of Superior Vena Cava, Guidance (ICD-10-PCS; 2019-07-26)
DX: A41.9 Sepsis, unspecified organism (principal); G92 Toxic encephalopathy; J96.01 Acute respiratory failure with hypoxia; L03.115 Cellulitis of right lower limb; Z68.42 Body mass index [BMI] 45.0-49.9, adult; M62.82 Rhabdomyolysis; E66.2 Morbid (severe) obesity with alveolar hypoventilation; R06.03 Acute respiratory distress; I10 Essential (primary) hypertension; E78.5 Hyperlipidemia, unspecified; Z88.0 Allergy status to penicillin; G89.4 Chronic pain syndrome; N40.0 Benign prostatic hyperplasia without lower urinary tract symptoms; I87.8 Other specified disorders of veins; K21.9 Gastro-esophageal reflux disease without esophagitis
CPT/HCPCS: 36415; 36569; 36597; 36600; 71045; 74470; 80048; 80053; 80061; 80076; 80202; 81001; 82550; 82553; 82805; 83036; 83605; 83690; 83735; 83880; 84100; 84443; 84484; 85025; 85610; 85730; 87040; 87071; 87086; 87205; 93005; 93306; 93970; 94660; 99284; J0692; J1650; J1885; J1940; J2001; J2270; J2405; J3370; J7030; J7040; J7050

== ENCOUNTER 2021-05-12 19:24 | Inpatient (IN) | payer OTHER ==
[~2021-05-12] VITALS: Ht 182.9 cm; Wt 169.2 kg
[2021-05-12] MEDS ORDERED: CEFEPIME 1 GM in SODIUM CHLORIDE 0.9% 50ML 50 ML IV ONE (19:45)
[2021-05-12] MEDS ORDERED: FUROSEMIDE INJ 10 MG/ML 4 ML VIAL IV NR (19:45)
[2021-05-12 20:17] LABS: BASOPHILS # (AUTO) 0.1 (0.0-0.1); BASOPHILS % 0.4 % (0.0-1.0); EOSINOPHILS # (AUTO) 0.3 (0.0-0.4); EOSINOPHILS % 2.4 % (0.0-6.0); HEMATOCRIT 50.6 % (38.2-49.6); HEMOGLOBIN 15.5 g/dL (14.0-18.0); LYMPHOCYTES # (AUTO) 1.2 (1.0-3.2); MEAN CORPUSCULAR HGB CONC 30.6 g/dL (31-35); MEAN CORPUSCULAR VOLUME 98.1 fL (81-99); MONOCYTES # (AUTO) 0.9 (0.2-0.8); MONOCYTES % 7.8 % (4.4-11.3); NEUTROPHILS # (AUTO) 9.1 (2.1-6.9); NEUTROPHILS % 79.1 % (38.7-80.0); PLATELET COUNT 200 x10e3/uL (140-360); RED BLOOD COUNT 5.16 x10e6/uL (4.3-5.7); RED CELL DISTRIBUTION WIDTH 14.9 % (11.7-14.4)
[2021-05-12 20:40] LABS: B-TYPE NATRIURETIC PEPTIDE2 35.4 pg/mL (0-100)
[2021-05-12 20:41] LABS: ALANINE AMINOTRANSFERASE 14 IU/L (0-55); ALBUMIN 3.6 g/dL (3.5-5.0); ALBUMIN/GLOBULIN RATIO 1.2 (0.8-2.0); ALKALINE PHOSPHATASE 69 IU/L (40-150); ANION GAP 9.4 mmol/L (8-16); BLOOD UREA NITROGEN 12 mg/dL (7-26); BUN/CREATININE RATIO 12 (6-25); CALCIUM 8.6 mg/dL (8.4-10.2); CARBON DIOXIDE 39 mmol/L (22-29); CHLORIDE 97 mmol/L (98-107); CREATINE KINASE 65 IU/L (30-200); CREATININE, SERUM 0.97 mg/dL (0.72-1.25); EST GLOMERULAR FILTRATION RATE 79 ML/MIN (60-); GLUCOSE 117 mg/dL (74-118); POTASSIUM 4.4 mmol/L (3.5-5.1); SODIUM 141 mmol/L (136-145)
[2021-05-12] MEDS ORDERED: SODIUM CHLORIDE 0.9% 50ML 0 ML ONE (23:55)
[2021-05-12] MEDS ORDERED: IOPAMIDOL 370 MG/ML 200 ML INFUS..BTL INJ ONE (23:56)
[2021-05-13] VITALS (16 sets, daily range): BP systolic 118–179; BP diastolic 68–117
[2021-05-13] MEDS ORDERED: ENOXAPARIN SOD INJ 120 MG/0.8 ML SYR SC SCH ×2 (02:00→17:00)
[2021-05-13 02:20] LABS: ABG PH 7.23 (7.35-7.45)
[2021-05-13 02:21] LABS: ABG PCO2 102 mmHg (35-45)
[2021-05-13 02:22] LABS: ABG HCO3 44 mmol/L (22-26); ABG PO2 93 mmHg (80-105); ABG TCO2 47
[2021-05-13 04:27] LABS: ABG PCO2 99 mmHg (35-45); ABG PH 7.25 (7.35-7.45); ABG PO2 117 mmHg (80-105)
[2021-05-13 04:28] LABS: ABG HCO3 44 mmol/L (22-26); ABG TCO2 47
[2021-05-13 06:00] LABS: CLARITY,URINE CLEAR (CLEAR); COLOR,URINE YELLOW (YELLOW); KETONES,URINE NEGATIVE (NEGATIVE); LEUKOCYTE ESTERASE ,URINE NEGATIVE (NEGATIVE); NITRITE,URINE NEGATIVE (NEGATIVE); PROTEIN,URINE DIPSTICK NEGATIVE (NEGATIVE); URINE UROBILINOGEN 0.2 mg/dL (0.2 - 1)
[2021-05-13 06:20] LABS: BACTERIA,URINE RARE /HPF; EPITHELIAL CELLS,URINE RARE /LPF; RBC,URINE >50 /HPF (0-5); WBC,URINE (MAN) 0-5 /HPF (0-5)
[2021-05-13] MEDS ORDERED: FLAXSEED OIL1000 MG PO (08:45)
[2021-05-13] MEDS ORDERED: LORATADINE10 MG PO (08:45)
[2021-05-13] MEDS ORDERED: LISINOPRIL40 MG PO (08:45)
[2021-05-13] MEDS ORDERED: MULTI-VITAMIN1 EACH PO (08:45)
[2021-05-13] MEDS ORDERED: calcium PO (08:45)
[2021-05-13] MEDS ORDERED: AMLODIPINE BESY10 MG PO (08:45)
[2021-05-13] MEDS: FUROSEMIDE INJ 10 MG/ML 4 ML VIAL IV SCH ×2 (11:26→20:33)
[2021-05-13] MEDS: Vancomycin IV 1 GM in SODIUM CHLORIDE 0.9% 250ML 250 ML IV SCH ×2 (11:26→23:20)
[2021-05-13] MEDS: HYDRALAZINE HCL 20 MG/ML VIAL IV PRN ×2 (13:19→20:33)
[2021-05-13] MEDS: CEFEPIME 1 GM in SODIUM CHLORIDE 0.9% 50ML 50 ML IV SCH ×2 (13:25→22:00)
[2021-05-13] MEDS ORDERED: IOPAMIDOL 370 MG/ML 200 ML INFUS..BTL INJ ONE (16:24)
[2021-05-13] MEDS ORDERED: SODIUM CHLORIDE 0.9% 50ML 50 ML ONE ×2 (16:24→21:41)
[2021-05-13] MEDS: ATORVASTATIN 20 MG TAB PO SCH (20:33)
[2021-05-14] VITALS (27 sets, daily range): BP systolic 12–158; BP diastolic 63–87
[2021-05-14] MEDS: ENOXAPARIN SOD INJ 40 MG/0.4 ML SYR SC SCH ×2 (05:39→17:13)
[2021-05-14] MEDS: CEFEPIME 1 GM in SODIUM CHLORIDE 0.9% 50ML 50 ML IV SCH ×3 (05:53→22:00)
[2021-05-14 06:12] LABS: BASOPHILS # (AUTO) 0.1 (0.0-0.1); BASOPHILS % 0.5 % (0.0-1.0); EOSINOPHILS # (AUTO) 0.3 (0.0-0.4); EOSINOPHILS % 2.4 % (0.0-6.0); HEMATOCRIT 49.1 % (38.2-49.6); HEMOGLOBIN 14.7 g/dL (14.0-18.0); LYMPHOCYTES # (AUTO) 0.5 (1.0-3.2); LYMPHOCYTES % 4.9 % (18.0-39.1); MEAN CORPUSCULAR HEMOGLOBIN 29.6 pg (28-32); MEAN CORPUSCULAR HGB CONC 29.9 g/dL (31-35); MONOCYTES # (AUTO) 0.9 (0.2-0.8); MONOCYTES % 8.9 % (4.4-11.3); NEUTROPHILS # (AUTO) 8.7 (2.1-6.9); NEUTROPHILS % 82.9 % (38.7-80.0); PLATELET COUNT 188 x10e3/uL (140-360); RED BLOOD COUNT 4.96 x10e6/uL (4.3-5.7); RED CELL DISTRIBUTION WIDTH 14.8 % (11.7-14.4)
[2021-05-14 07:39] LABS: ALBUMIN 3.2 g/dL (3.5-5.0); ALBUMIN/GLOBULIN RATIO 0.9 (0.8-2.0); ANION GAP 14.1 mmol/L (8-16); CALCIUM 8.3 mg/dL (8.4-10.2); CREATININE, SERUM 0.77 mg/dL (0.72-1.25); POTASSIUM 4.1 mmol/L (3.5-5.1)
[2021-05-14] MEDS: MULTIVITAMINS/MINERALS TAB PO SCH (08:50)
[2021-05-14] MEDS: ASPIRIN 81 MG CHEW TAB PO SCH (08:50)
[2021-05-14] MEDS: FUROSEMIDE INJ 10 MG/ML 4 ML VIAL IV SCH ×2 (08:52→21:02)
[2021-05-14] MEDS: LISINOPRIL 20 MG TAB PO SCH ×2 (09:00→12:04)
[2021-05-14] MEDS ORDERED: ENOXAPARIN SOD INJ 120 MG/0.8 ML SYR SC SCH (09:00)
[2021-05-14] MEDS: Vancomycin IV 1 GM in SODIUM CHLORIDE 0.9% 250ML 250 ML IV SCH (11:45)
[2021-05-14] MEDS: ACETAMINOPHEN/CODEINE 300MG - 30MG TAB PO PRN (15:45)
[2021-05-14] MEDS: ATORVASTATIN 20 MG TAB PO SCH (21:02)
[2021-05-14] MEDS: VANCOMYCIN 300 ML IV SCH (23:00)
[2021-05-15] VITALS (14 sets, daily range): BP systolic 87–115; BP diastolic 53–78
[2021-05-15] MEDS: ENOXAPARIN SOD INJ 40 MG/0.4 ML SYR SC SCH ×2 (05:00→17:11)
[2021-05-15 05:06] LABS: BASOPHILS % 0.4 % (0.0-1.0); EOSINOPHILS # (AUTO) 0.4 (0.0-0.4); HEMOGLOBIN 14.8 g/dL (14.0-18.0); LYMPHOCYTES # (AUTO) 0.5 (1.0-3.2); LYMPHOCYTES % 4.5 % (18.0-39.1); MEAN CORPUSCULAR HGB CONC 30.8 g/dL (31-35); MEAN CORPUSCULAR VOLUME 97.2 fL (81-99); MONOCYTES % 9.4 % (4.4-11.3); NEUTROPHILS # (AUTO) 9.1 (2.1-6.9); NEUTROPHILS % 81.3 % (38.7-80.0); PLATELET COUNT 186 x10e3/uL (140-360); RED BLOOD COUNT 4.94 x10e6/uL (4.3-5.7); RED CELL DISTRIBUTION WIDTH 14.7 % (11.7-14.4)
[2021-05-15] MEDS: CEFEPIME 1 GM in SODIUM CHLORIDE 0.9% 50ML 50 ML IV SCH ×3 (06:00→21:48)
[2021-05-15 06:15] LABS: ALBUMIN 3.1 g/dL (3.5-5.0); ALBUMIN/GLOBULIN RATIO 0.9 (0.8-2.0); ANION GAP 11.7 mmol/L (8-16); CALCIUM 8.6 mg/dL (8.4-10.2); CREATININE, SERUM 0.85 mg/dL (0.72-1.25); POTASSIUM 3.7 mmol/L (3.5-5.1)
[2021-05-15] MEDS: ACETAMINOPHEN/CODEINE 300MG - 30MG TAB PO PRN ×3 (06:59→20:45)
[2021-05-15] MEDS: MULTIVITAMINS/MINERALS TAB PO SCH (08:30)
[2021-05-15] MEDS: ASPIRIN 81 MG CHEW TAB PO SCH (09:00)
[2021-05-15] MEDS: FUROSEMIDE INJ 10 MG/ML 4 ML VIAL IV SCH ×2 (09:09→20:40)
[2021-05-15] MEDS: LISINOPRIL 20 MG TAB PO SCH (10:17)
[2021-05-15] MEDS: VANCOMYCIN 300 ML IV SCH ×2 (11:55→22:36)
[2021-05-15] MEDS ORDERED: Vancomycin IV 1.5 GM in SODIUM CHLORIDE 0.9% 250ML 250 ML IV SCH (13:30)
[2021-05-15] MEDS ORDERED: SODIUM CHLORIDE 0.9% 250ML 250 ML ONE (13:59)
[2021-05-15 16:25] LABS: ABG HCO3 42 mmol/L (22-26); ABG PCO2 71 mmHg (35-45); ABG PH 7.38 (7.35-7.45); ABG PO2 73 mmHg (80-105); ABG TCO2 44
[2021-05-15] MEDS: ATORVASTATIN 20 MG TAB PO SCH (20:41)
[2021-05-16] VITALS (13 sets, daily range): BP systolic 99–120; BP diastolic 63–108
[2021-05-16] MEDS: ENOXAPARIN SOD INJ 40 MG/0.4 ML SYR SC SCH ×2 (05:49→17:12)
[2021-05-16] MEDS: CEFEPIME 1 GM in SODIUM CHLORIDE 0.9% 50ML 50 ML IV SCH ×3 (05:49→22:02)
[2021-05-16 06:01] LABS: BASOPHILS # (AUTO) 0.1 (0.0-0.1); BASOPHILS % 0.5 % (0.0-1.0); EOSINOPHILS # (AUTO) 0.5 (0.0-0.4); EOSINOPHILS % 5.1 % (0.0-6.0); HEMATOCRIT 49.3 % (38.2-49.6); LYMPHOCYTES # (AUTO) 0.5 (1.0-3.2); LYMPHOCYTES % 4.9 % (18.0-39.1); MEAN CORPUSCULAR HEMOGLOBIN 30.1 pg (28-32); MEAN CORPUSCULAR HGB CONC 30.4 g/dL (31-35); MEAN CORPUSCULAR VOLUME 98.8 fL (81-99); MONOCYTES % 9.2 % (4.4-11.3); NEUTROPHILS # (AUTO) 8.4 (2.1-6.9); PLATELET COUNT 185 x10e3/uL (140-360); RED BLOOD COUNT 4.99 x10e6/uL (4.3-5.7); RED CELL DISTRIBUTION WIDTH 14.9 % (11.7-14.4)
[2021-05-16 06:21] LABS: ANION GAP 13.9 mmol/L (8-16); CREATININE, SERUM 0.92 mg/dL (0.72-1.25); POTASSIUM 3.9 mmol/L (3.5-5.1)
[2021-05-16] MEDS: ACETAMINOPHEN/CODEINE 300MG - 30MG TAB PO PRN ×2 (06:34→19:49)
[2021-05-16] MEDS: FUROSEMIDE INJ 10 MG/ML 4 ML VIAL IV SCH ×2 (09:25→20:15)
[2021-05-16] MEDS: ASPIRIN 81 MG CHEW TAB PO SCH (09:25)
[2021-05-16] MEDS: MULTIVITAMINS/MINERALS TAB PO SCH (09:25)
[2021-05-16] MEDS: VANCOMYCIN 300 ML IV SCH (11:00)
[2021-05-16] MEDS ORDERED: Vancomycin IV 1 GM in SODIUM CHLORIDE 0.9% 250ML 250 ML IV SCH (11:00)
[2021-05-16] MEDS: LISINOPRIL 20 MG TAB PO SCH (11:35)
[2021-05-16] MEDS ORDERED: LACTULOSE SYRUP 20 GM/30 ML UDC PO PRN (16:15)
[2021-05-16] MEDS: ATORVASTATIN 20 MG TAB PO SCH (20:15)
[2021-05-17] VITALS (15 sets, daily range): BP systolic 97–163; BP diastolic 53–137
[2021-05-17] MEDS: CEFEPIME 1 GM in SODIUM CHLORIDE 0.9% 50ML 50 ML IV SCH ×3 (05:19→21:57)
[2021-05-17] MEDS: ENOXAPARIN SOD INJ 40 MG/0.4 ML SYR SC SCH ×2 (05:19→17:12)
[2021-05-17 05:27] LABS: BASOPHILS # (AUTO) 0.1 (0.0-0.1); BASOPHILS % 0.6 % (0.0-1.0); EOSINOPHILS # (AUTO) 0.6 (0.0-0.4); EOSINOPHILS % 5.9 % (0.0-6.0); HEMATOCRIT 47.7 % (38.2-49.6); HEMOGLOBIN 14.7 g/dL (14.0-18.0); LYMPHOCYTES # (AUTO) 0.6 (1.0-3.2); LYMPHOCYTES % 6.2 % (18.0-39.1); MEAN CORPUSCULAR HEMOGLOBIN 30.2 pg (28-32); MEAN CORPUSCULAR HGB CONC 30.8 g/dL (31-35); MEAN CORPUSCULAR VOLUME 97.9 fL (81-99); MONOCYTES # (AUTO) 1.1 (0.2-0.8); MONOCYTES % 11.5 % (4.4-11.3); NEUTROPHILS # (AUTO) 7.1 (2.1-6.9); NEUTROPHILS % 75.4 % (38.7-80.0); PLATELET COUNT 189 x10e3/uL (140-360); RED BLOOD COUNT 4.87 x10e6/uL (4.3-5.7); RED CELL DISTRIBUTION WIDTH 14.7 % (11.7-14.4)
[2021-05-17 05:49] LABS: ALBUMIN 3.1 g/dL (3.5-5.0); ALBUMIN/GLOBULIN RATIO 0.8 (0.8-2.0); ANION GAP 12.8 mmol/L (8-16); CALCIUM 9.1 mg/dL (8.4-10.2); CREATININE, SERUM 0.88 mg/dL (0.72-1.25); POTASSIUM 3.8 mmol/L (3.5-5.1)
[2021-05-17] MEDS: FUROSEMIDE INJ 10 MG/ML 4 ML VIAL IV SCH ×2 (09:42→20:47)
[2021-05-17] MEDS: ASPIRIN 81 MG CHEW TAB PO SCH (09:42)
[2021-05-17] MEDS: MULTIVITAMINS/MINERALS TAB PO SCH (09:42)
[2021-05-17] MEDS: Vancomycin IV 1 GM in SODIUM CHLORIDE 0.9% 250ML 250 ML IV SCH (10:21)
[2021-05-17] MEDS: ROPINIROLE HCL 0.25 MG TAB PO SCH ×2 (15:25→20:47)
[2021-05-17] MEDS: LISINOPRIL 20 MG TAB PO SCH (17:12)
[2021-05-17] MEDS: ATORVASTATIN 20 MG TAB PO SCH (20:47)
[2021-05-17] MEDS: ACETAMINOPHEN/CODEINE 300MG - 30MG TAB PO PRN (20:51)
[2021-05-18] VITALS (8 sets, daily range): BP systolic 91–107; BP diastolic 62–71
[2021-05-18] MEDS: ACETAMINOPHEN/CODEINE 300MG - 30MG TAB PO PRN ×3 (01:30→23:40)
[2021-05-18] MEDS: ENOXAPARIN SOD INJ 40 MG/0.4 ML SYR SC SCH ×2 (05:03→17:21)
[2021-05-18] MEDS: CEFEPIME 1 GM in SODIUM CHLORIDE 0.9% 50ML 50 ML IV SCH ×3 (05:58→22:00)
[2021-05-18 06:37] LABS: ANION GAP 10.8 mmol/L (8-16); CALCIUM 8.9 mg/dL (8.4-10.2); CREATININE, SERUM 0.85 mg/dL (0.72-1.25); MAGNESIUM 2.3 MG/DL (1.3-2.1); POTASSIUM 3.8 mmol/L (3.5-5.1)
[2021-05-18] MEDS: FUROSEMIDE INJ 10 MG/ML 4 ML VIAL IV SCH ×2 (08:54→21:50)
[2021-05-18] MEDS: MULTIVITAMINS/MINERALS TAB PO SCH (08:54)
[2021-05-18] MEDS: ROPINIROLE HCL 0.25 MG TAB PO SCH ×3 (08:54→22:57)
[2021-05-18] MEDS: ASPIRIN 81 MG CHEW TAB PO SCH (08:54)
[2021-05-18] MEDS: LISINOPRIL 20 MG TAB PO SCH (09:00)
[2021-05-18] MEDS ORDERED: METOLAZONE 5 MG TAB PO ONE (10:00)
[2021-05-18] MEDS: Vancomycin IV 1 GM in SODIUM CHLORIDE 0.9% 250ML 250 ML IV SCH (11:09)
[2021-05-18] MEDS: ATORVASTATIN 20 MG TAB PO SCH (22:57)
[2021-05-19] VITALS (7 sets, daily range): BP systolic 101–123; BP diastolic 61–89
[2021-05-19] MEDS: ENOXAPARIN SOD INJ 40 MG/0.4 ML SYR SC SCH ×2 (05:30→17:00)
[2021-05-19] MEDS: CEFEPIME 1 GM in SODIUM CHLORIDE 0.9% 50ML 50 ML IV SCH ×3 (05:30→22:57)
[2021-05-19] MEDS ORDERED: SODIUM CHLORIDE 0.9% 50ML 50 ML ONE (05:35)
[2021-05-19 06:33] LABS: BASOPHILS # (AUTO) 0.1 (0.0-0.1); EOSINOPHILS # (AUTO) 0.5 (0.0-0.4); EOSINOPHILS % 5.8 % (0.0-6.0); HEMATOCRIT 47.4 % (38.2-49.6); HEMOGLOBIN 14.3 g/dL (14.0-18.0); LYMPHOCYTES # (AUTO) 0.8 (1.0-3.2); LYMPHOCYTES % 9.6 % (18.0-39.1); MEAN CORPUSCULAR HEMOGLOBIN 29.9 pg (28-32); MEAN CORPUSCULAR HGB CONC 30.2 g/dL (31-35); MEAN CORPUSCULAR VOLUME 99.2 fL (81-99); MONOCYTES % 11.4 % (4.4-11.3); PLATELET COUNT 181 x10e3/uL (140-360); RED BLOOD COUNT 4.78 x10e6/uL (4.3-5.7); RED CELL DISTRIBUTION WIDTH 14.4 % (11.7-14.4)
[2021-05-19 06:50] LABS: ALBUMIN 3.1 g/dL (3.5-5.0); ALBUMIN/GLOBULIN RATIO 0.8 (0.8-2.0); ANION GAP 12.7 mmol/L (8-16); CALCIUM 9.2 mg/dL (8.4-10.2); CREATININE, SERUM 0.95 mg/dL (0.72-1.25); POTASSIUM 3.7 mmol/L (3.5-5.1)
[2021-05-19 07:06] LABS: PLATELET ESTIMATE ADEQUATE; PLATELET MORPHOLOGY COMMENT RARE EDTA CLUMPING; RBC MORPHOLOGY COMMENT NORMAL
[2021-05-19] MEDS: ASPIRIN 81 MG CHEW TAB PO SCH (08:02)
[2021-05-19] MEDS: ROPINIROLE HCL 0.25 MG TAB PO SCH ×3 (08:02→21:26)
[2021-05-19] MEDS: FUROSEMIDE INJ 10 MG/ML 4 ML VIAL IV SCH ×3 (08:02→21:50)
[2021-05-19] MEDS: ACETAZOLAMIDE SODIUM 500 MG/VIAL IV SCH (08:02)
[2021-05-19] MEDS: MULTIVITAMINS/MINERALS TAB PO SCH (08:02)
[2021-05-19] MEDS: LISINOPRIL 20 MG TAB PO SCH (08:03)
[2021-05-19] MEDS ORDERED: FLUOCINONIDE 0.05% 1 EA/15 GM TUBE TOP SCH (09:00)
[2021-05-19] MEDS: Vancomycin IV 1 GM in SODIUM CHLORIDE 0.9% 250ML 250 ML IV SCH ×2 (12:05→23:00)
[2021-05-19] MEDS: ACETAMINOPHEN/CODEINE 300MG - 30MG TAB PO PRN ×2 (15:19→23:00)
[2021-05-19] MEDS: ATORVASTATIN 20 MG TAB PO SCH (22:57)
[2021-05-20] VITALS (8 sets, daily range): BP systolic 95–111; BP diastolic 61–68
[2021-05-20] MEDS: ENOXAPARIN SOD INJ 40 MG/0.4 ML SYR SC SCH ×2 (05:33→17:26)
[2021-05-20 05:44] LABS: BASOPHILS # (AUTO) 0.1 (0.0-0.1); BASOPHILS % 0.8 % (0.0-1.0); EOSINOPHILS # (AUTO) 0.5 (0.0-0.4); EOSINOPHILS % 6.1 % (0.0-6.0); HEMATOCRIT 44.9 % (38.2-49.6); HEMOGLOBIN 13.8 g/dL (14.0-18.0); LYMPHOCYTES # (AUTO) 0.9 (1.0-3.2); LYMPHOCYTES % 11.4 % (18.0-39.1); MEAN CORPUSCULAR HEMOGLOBIN 30.2 pg (28-32); MEAN CORPUSCULAR HGB CONC 30.7 g/dL (31-35); MEAN CORPUSCULAR VOLUME 98.2 fL (81-99); MONOCYTES # (AUTO) 0.9 (0.2-0.8); NEUTROPHILS # (AUTO) 5.4 (2.1-6.9); NEUTROPHILS % 70.3 % (38.7-80.0); PLATELET COUNT 195 x10e3/uL (140-360); RED BLOOD COUNT 4.57 x10e6/uL (4.3-5.7); RED CELL DISTRIBUTION WIDTH 14.3 % (11.7-14.4)
[2021-05-20] MEDS: CEFEPIME 1 GM in SODIUM CHLORIDE 0.9% 50ML 50 ML IV SCH ×3 (05:47→22:00)
[2021-05-20 06:29] LABS: ANION GAP 11.8 mmol/L (8-16); CALCIUM 9.2 mg/dL (8.4-10.2); CREATININE, SERUM 0.88 mg/dL (0.72-1.25); POTASSIUM 3.8 mmol/L (3.5-5.1)
[2021-05-20] MEDS: MULTIVITAMINS/MINERALS TAB PO SCH (08:56)
[2021-05-20] MEDS: ACETAZOLAMIDE SODIUM 500 MG/VIAL IV SCH (08:56)
[2021-05-20] MEDS: FUROSEMIDE INJ 10 MG/ML 4 ML VIAL IV SCH ×2 (08:56→22:00)
[2021-05-20] MEDS: ASPIRIN 81 MG CHEW TAB PO SCH (08:56)
[2021-05-20] MEDS: LISINOPRIL 20 MG TAB PO SCH (08:57)
[2021-05-20] MEDS: ROPINIROLE HCL 0.25 MG TAB PO SCH ×3 (08:57→22:00)
[2021-05-20] MEDS ORDERED: FLUOCINONIDE 0.05% 1 EA/15 GM TUBE TOP SCH (09:00)
[2021-05-20] MEDS: Vancomycin IV 1 GM in SODIUM CHLORIDE 0.9% 250ML 250 ML IV SCH ×2 (11:45→23:50)
[2021-05-20] MEDS: DICLOFENAC SOD 1% GEL 100 GM TUBE TP SCH ×3 (15:17→22:00)
[2021-05-20] MEDS: ATORVASTATIN 20 MG TAB PO SCH (22:00)
[2021-05-20] MEDS: ACETAMINOPHEN/CODEINE 300MG - 30MG TAB PO PRN (22:15)
[2021-05-21] VITALS (8 sets, daily range): BP systolic 105–123; BP diastolic 64–83
[2021-05-21] MEDS: DICLOFENAC SOD 1% GEL 100 GM TUBE TP SCH ×3 (06:00→22:23)
[2021-05-21] MEDS ORDERED: SODIUM CHLORIDE 0.9% 250ML 250 ML ONE ×2 (06:40→10:47)
[2021-05-21] MEDS: CEFEPIME 1 GM in SODIUM CHLORIDE 0.9% 50ML 50 ML IV SCH ×3 (06:40→22:30)
[2021-05-21 06:50] LABS: BASOPHILS # (AUTO) 0.1 (0.0-0.1); EOSINOPHILS # (AUTO) 0.5 (0.0-0.4); EOSINOPHILS % 5.8 % (0.0-6.0); HEMATOCRIT 46.1 % (38.2-49.6); HEMOGLOBIN 14.1 g/dL (14.0-18.0); LYMPHOCYTES % 11.4 % (18.0-39.1); MEAN CORPUSCULAR HEMOGLOBIN 30.1 pg (28-32); MEAN CORPUSCULAR HGB CONC 30.6 g/dL (31-35); MEAN CORPUSCULAR VOLUME 98.5 fL (81-99); MONOCYTES # (AUTO) 0.9 (0.2-0.8); MONOCYTES % 10.2 % (4.4-11.3); NEUTROPHILS % 71.2 % (38.7-80.0); PLATELET COUNT 168 x10e3/uL (140-360); RED BLOOD COUNT 4.68 x10e6/uL (4.3-5.7); RED CELL DISTRIBUTION WIDTH 14.2 % (11.7-14.4)
[2021-05-21 07:05] LABS: PROTHROMBIN TIME 13.8 seconds (11.9-14.5)
[2021-05-21 07:06] LABS: PARTIAL THROMBOPLASTIN TIME 27.6 seconds (23.8-35.5)
[2021-05-21 07:07] LABS: ANION GAP 14.9 mmol/L (8-16); CALCIUM 9.4 mg/dL (8.4-10.2); CREATININE, SERUM 0.83 mg/dL (0.72-1.25); POTASSIUM 3.9 mmol/L (3.5-5.1)
[2021-05-21] MEDS: ROPINIROLE HCL 0.25 MG TAB PO SCH ×3 (08:52→22:15)
[2021-05-21] MEDS: FUROSEMIDE INJ 10 MG/ML 4 ML VIAL IV SCH ×2 (08:53→22:30)
[2021-05-21] MEDS: LISINOPRIL 20 MG TAB PO SCH (08:53)
[2021-05-21] MEDS: MULTIVITAMINS/MINERALS TAB PO SCH (08:53)
[2021-05-21] MEDS: ACETAZOLAMIDE SODIUM 500 MG/VIAL IV SCH (08:53)
[2021-05-21] MEDS: ASPIRIN 81 MG CHEW TAB PO SCH (08:53)
[2021-05-21] MEDS ORDERED: IOPAMIDOL 370 MG/ML 200 ML INFUS..BTL INJ ONE (10:47)
[2021-05-21] MEDS: ATORVASTATIN 20 MG TAB PO SCH (22:15)
[2021-05-21] MEDS: ACETAMINOPHEN 325 MG TAB PO PRN (22:18)
[2021-05-21] MEDS: Vancomycin IV 1.5 GM in SODIUM CHLORIDE 0.9% 250ML 300 ML IV SCH (23:24)
[2021-05-22] VITALS (8 sets, daily range): BP systolic 110–123; BP diastolic 70–76
[2021-05-22] MEDS: DICLOFENAC SOD 1% GEL 100 GM TUBE TP SCH ×3 (06:00→20:34)
[2021-05-22] MEDS: CEFEPIME 1 GM in SODIUM CHLORIDE 0.9% 50ML 50 ML IV SCH ×3 (06:10→20:34)
[2021-05-22] MEDS: ASPIRIN 81 MG CHEW TAB PO SCH (09:48)
[2021-05-22] MEDS: FUROSEMIDE INJ 10 MG/ML 4 ML VIAL IV SCH ×2 (09:48→20:34)
[2021-05-22] MEDS: ACETAZOLAMIDE SODIUM 500 MG/VIAL IV SCH (09:48)
[2021-05-22] MEDS: MULTIVITAMINS/MINERALS TAB PO SCH (09:48)
[2021-05-22] MEDS: ROPINIROLE HCL 0.25 MG TAB PO SCH ×3 (09:49→20:34)
[2021-05-22] MEDS: LISINOPRIL 20 MG TAB PO SCH (09:49)
[2021-05-22] MEDS: Vancomycin IV 1.5 GM in SODIUM CHLORIDE 0.9% 250ML 300 ML IV SCH ×2 (13:43→23:37)
[2021-05-22] MEDS: ATORVASTATIN 20 MG TAB PO SCH (20:34)
[2021-05-22] MEDS: LORATADINE 10 MG TAB PO SCH (22:00)
[2021-05-22] MEDS: ACETAMINOPHEN 325 MG TAB PO PRN (22:00)
[2021-05-23] VITALS (7 sets, daily range): BP systolic 105–118; BP diastolic 64–89
[2021-05-23] MEDS: DICLOFENAC SOD 1% GEL 100 GM TUBE TP SCH ×3 (06:12→20:41)
[2021-05-23] MEDS: CEFEPIME 1 GM in SODIUM CHLORIDE 0.9% 50ML 50 ML IV SCH (06:20)
[2021-05-23 06:43] LABS: BASOPHILS # (AUTO) 0.1 (0.0-0.1); BASOPHILS % 1.3 % (0.0-1.0); EOSINOPHILS # (AUTO) 0.5 (0.0-0.4); EOSINOPHILS % 5.2 % (0.0-6.0); HEMATOCRIT 46.5 % (38.2-49.6); HEMOGLOBIN 14.4 g/dL (14.0-18.0); LYMPHOCYTES # (AUTO) 1.1 (1.0-3.2); MEAN CORPUSCULAR HEMOGLOBIN 30.1 pg (28-32); MEAN CORPUSCULAR VOLUME 97.1 fL (81-99); MONOCYTES # (AUTO) 0.9 (0.2-0.8); MONOCYTES % 9.6 % (4.4-11.3); NEUTROPHILS # (AUTO) 6.9 (2.1-6.9); NEUTROPHILS % 72.4 % (38.7-80.0); PLATELET COUNT 209 x10e3/uL (140-360); RED BLOOD COUNT 4.79 x10e6/uL (4.3-5.7)
[2021-05-23 07:11] LABS: CALCIUM 9.2 mg/dL (8.4-10.2); CREATININE, SERUM 0.82 mg/dL (0.72-1.25)
[2021-05-23] MEDS: ACETAMINOPHEN 325 MG TAB PO PRN ×2 (08:41→20:42)
[2021-05-23] MEDS: ASPIRIN 81 MG CHEW TAB PO SCH (08:42)
[2021-05-23] MEDS: ACETAZOLAMIDE SODIUM 500 MG/VIAL IV SCH (08:42)
[2021-05-23] MEDS: MULTIVITAMINS/MINERALS TAB PO SCH (08:42)
[2021-05-23] MEDS: FUROSEMIDE INJ 10 MG/ML 4 ML VIAL IV SCH ×2 (08:42→20:41)
[2021-05-23] MEDS: ROPINIROLE HCL 0.25 MG TAB PO SCH ×3 (08:43→20:41)
[2021-05-23] MEDS: LISINOPRIL 20 MG TAB PO SCH (08:43)
[2021-05-23] MEDS: LORATADINE 10 MG TAB PO SCH (08:45)
[2021-05-23] MEDS: Vancomycin IV 1.5 GM in SODIUM CHLORIDE 0.9% 250ML 300 ML IV SCH ×2 (10:13→23:58)
[2021-05-23] MEDS ORDERED: Vancomycin IV 1 GM VIAL ONE (10:13)
[2021-05-23] MEDS: ATORVASTATIN 20 MG TAB PO SCH (20:41)
[2021-05-23] MEDS: METOLAZONE 5 MG TAB PO SCH (20:44)
[2021-05-24] VITALS (7 sets, daily range): BP systolic 104–124; BP diastolic 68–82
[2021-05-24] MEDS: DICLOFENAC SOD 1% GEL 100 GM TUBE TP SCH ×3 (05:38→21:01)
[2021-05-24 06:26] LABS: ALBUMIN/GLOBULIN RATIO 0.8 (0.8-2.0); ANION GAP 11.9 mmol/L (8-16); CREATININE, SERUM 0.85 mg/dL (0.72-1.25); POTASSIUM 3.9 mmol/L (3.5-5.1)
[2021-05-24] MEDS: FUROSEMIDE INJ 10 MG/ML 4 ML VIAL IV SCH ×2 (08:53→21:01)
[2021-05-24] MEDS: ASPIRIN 81 MG CHEW TAB PO SCH (08:53)
[2021-05-24] MEDS: MULTIVITAMINS/MINERALS TAB PO SCH (08:53)
[2021-05-24] MEDS: ACETAZOLAMIDE SODIUM 500 MG/VIAL IV SCH (08:53)
[2021-05-24] MEDS: LORATADINE 10 MG TAB PO SCH (08:53)
[2021-05-24] MEDS: LISINOPRIL 20 MG TAB PO SCH (08:54)
[2021-05-24] MEDS: METOLAZONE 5 MG TAB PO SCH (08:54)
[2021-05-24] MEDS: ROPINIROLE HCL 0.25 MG TAB PO SCH ×3 (08:54→21:01)
[2021-05-24] MEDS: Vancomycin IV 1.5 GM in SODIUM CHLORIDE 0.9% 250ML 300 ML IV SCH ×2 (12:08→22:03)
[2021-05-24] MEDS: ATORVASTATIN 20 MG TAB PO SCH (21:01)
[2021-05-24] MEDS: ACETAMINOPHEN 325 MG TAB PO PRN (21:24)
[2021-05-25] VITALS (9 sets, daily range): BP systolic 97–121; BP diastolic 63–81
[2021-05-25] MEDS: DICLOFENAC SOD 1% GEL 100 GM TUBE TP SCH ×3 (06:01→21:03)
[2021-05-25 07:09] LABS: BASOPHILS # (AUTO) 0.1 (0.0-0.1); BASOPHILS % 1.4 % (0.0-1.0); EOSINOPHILS # (AUTO) 0.4 (0.0-0.4); EOSINOPHILS % 4.4 % (0.0-6.0); HEMATOCRIT 48.6 % (38.2-49.6); HEMOGLOBIN 15.2 g/dL (14.0-18.0); LYMPHOCYTES # (AUTO) 1.1 (1.0-3.2); LYMPHOCYTES % 11.3 % (18.0-39.1); MEAN CORPUSCULAR HEMOGLOBIN 29.9 pg (28-32); MEAN CORPUSCULAR HGB CONC 31.3 g/dL (31-35); MEAN CORPUSCULAR VOLUME 95.5 fL (81-99); MONOCYTES # (AUTO) 0.9 (0.2-0.8); MONOCYTES % 9.1 % (4.4-11.3); NEUTROPHILS # (AUTO) 7.3 (2.1-6.9); NEUTROPHILS % 73.3 % (38.7-80.0); PLATELET COUNT 201 x10e3/uL (140-360); RED BLOOD COUNT 5.09 x10e6/uL (4.3-5.7)
[2021-05-25 07:30] LABS: ALBUMIN 3.2 g/dL (3.5-5.0); ALBUMIN/GLOBULIN RATIO 0.8 (0.8-2.0); ANION GAP 10.9 mmol/L (8-16); CALCIUM 9.4 mg/dL (8.4-10.2); CREATININE, SERUM 0.92 mg/dL (0.72-1.25); POTASSIUM 3.9 mmol/L (3.5-5.1)
[2021-05-25] MEDS: MULTIVITAMINS/MINERALS TAB PO SCH (10:23)
[2021-05-25] MEDS: ASPIRIN 81 MG CHEW TAB PO SCH (10:23)
[2021-05-25] MEDS: LORATADINE 10 MG TAB PO SCH (10:23)
[2021-05-25] MEDS: ROPINIROLE HCL 0.25 MG TAB PO SCH ×3 (10:24→20:47)
[2021-05-25] MEDS: METOLAZONE 5 MG TAB PO SCH (10:24)
[2021-05-25] MEDS: LISINOPRIL 20 MG TAB PO SCH (10:24)
[2021-05-25] MEDS: FUROSEMIDE INJ 10 MG/ML 4 ML VIAL IV SCH ×2 (10:29→20:46)
[2021-05-25] MEDS: ATORVASTATIN 20 MG TAB PO SCH (20:47)
[2021-05-25] MEDS: ACETAMINOPHEN 325 MG TAB PO PRN (20:50)
[2021-05-26] VITALS: BP 116/63
[2021-05-26 04:00] VITALS: BP 103/61
[2021-05-26] MEDS: DICLOFENAC SOD 1% GEL 100 GM TUBE TP SCH ×2 (05:08→14:00)
[2021-05-26 08:03] VITALS: BP 102/64
[2021-05-26 08:17] VITALS: BP 102/64
[2021-05-26] MEDS: ASPIRIN 81 MG CHEW TAB PO SCH (09:00)
[2021-05-26] MEDS: LISINOPRIL 20 MG TAB PO SCH (09:00)
[2021-05-26] MEDS: ROPINIROLE HCL 0.25 MG TAB PO SCH ×2 (09:00→16:33)
[2021-05-26] MEDS: LORATADINE 10 MG TAB PO SCH (09:00)
[2021-05-26] MEDS: MULTIVITAMINS/MINERALS TAB PO SCH (09:00)
[2021-05-26] MEDS: FUROSEMIDE INJ 10 MG/ML 4 ML VIAL IV SCH (09:00)
[2021-05-26] MEDS: METOLAZONE 5 MG TAB PO SCH (09:01)
[2021-05-26 11:54] VITALS: BP 107/75
[2021-05-26] MEDS ORDERED: LASIX40 MG PO (15:47)
[2021-05-26] MEDS ORDERED: Diclofenac Sod TP (15:48)
[2021-05-26 16:08] VITALS: BP 106/69
== END 2021-05-26 20:23 | disposition home health service (06) | DRG 871 ==
LOC: ER 19:45 → ERHOLD 05-13 03:34 → ICU 05-13 09:57 → MED/SURG3 05-17 22:48
PROVIDERS: ADMIT Internal Medicine; ATTEND Internal Medicine
PROC: 02HV33Z Insertion of Infusion Device into Superior Vena Cava, Percutaneous Approach (ICD-10-PCS; principal; 2021-05-13)
PROC: 5A09457 Assistance with Respiratory Ventilation, 24-96 Consecutive Hours, Continuous Positive Airway Pressure (ICD-10-PCS; 2021-05-13)
DX: A41.9 Sepsis, unspecified organism (principal); J96.21 Acute and chronic respiratory failure with hypoxia; I50.33 Acute on chronic diastolic (congestive) heart failure; J96.22 Acute and chronic respiratory failure with hypercapnia; J18.9 Pneumonia, unspecified organism; L03.116 Cellulitis of left lower limb; L03.115 Cellulitis of right lower limb; L03.311 Cellulitis of abdominal wall; Z68.43 Body mass index [BMI] 50.0-59.9, adult; E66.2 Morbid (severe) obesity with alveolar hypoventilation; E78.5 Hyperlipidemia, unspecified; I11.0 Hypertensive heart disease with heart failure; E66.01 Morbid (severe) obesity due to excess calories; Z88.0 Allergy status to penicillin; Z83.3 Family history of diabetes mellitus; Z82.49 Family history of ischemic heart disease and other diseases of the circulatory system; I89.0 Lymphedema, not elsewhere classified; K59.00 Constipation, unspecified; R53.81 Other malaise; I27.29 Other secondary pulmonary hypertension; I27.81 Cor pulmonale (chronic); N43.3 Hydrocele, unspecified; N40.1 Benign prostatic hyperplasia with lower urinary tract symptoms; R35.1 Nocturia; D64.9 Anemia, unspecified; R31.0 Gross hematuria; R23.3 Spontaneous ecchymoses; L27.0 Generalized skin eruption due to drugs and medicaments taken internally; T36.95XA Adverse effect of unspecified systemic antibiotic, initial encounter; Y92.230 Patient room in hospital as the place of occurrence of the external cause; G57.11 Meralgia paresthetica, right lower limb; R33.9 Retention of urine, unspecified; N28.1 Cyst of kidney, acquired; N21.0 Calculus in bladder
CPT/HCPCS: 36415; 36569; 36600; 71045; 71250; 71260; 74178; 80048; 80053; 80202; 81001; 82550; 82553; 82805; 82947; 82948; 83605; 83735; 83880; 84484; 85025; 85610; 85730; 87040; 93005; 93306; 94660; 97139; 99251; 99284; J0360; J0692; J1650; J1940; J3370; J7050; Q9967